=== PATIENT | male | born 1945 | race Caucasian/White ===

== ENCOUNTER 2016-03-11 13:51 | Inpatient (IN) | payer MEDICARE ==
[~2016-03-11] VITALS: Ht 180.3 cm; Wt 92.1 kg
[~2016-03-11 13:51] MED LIST: BAYER CHEWABLE81 MG PO; BUMEX 1 MG TAB1 MG PO; BYSTOLIC5 MG PO; HYDROCODON-ACE1 EAC7 PO; JANUVIA50 MG PO; LISINOPRIL2.5 MG PO; NEURONTIN 300300 MG PO; NORVASC5 MG PO; NOVOLIN N100 U/ML SQ; PRAVACHOL20 MG PO; RITALIN5 MG PO; SYNTHROID75 MCG PO; WELLBUTRIN75 MG PO
--- NOTE | 2016-03-11 14:15 | NUR ---
ARRIVE TO FLOOR VIA WHEELCHAIR FROM DOCTOR'S OFFICE. ALERT AND ORIENTED X4. SISTER AT BEDSIDE. RT FOOT AND LOWER LEG RED AND SWOLLEN. DENIES PAIN. DENIES SOB. NO FEELING IN LOWER EXTREMITIES BILATERALLY DUE TO NEUROPATHY. REFUSE SCDs. CONTINUE ADMISSION PROCESS. BED LOCKED AND LOW. CALL LIGHT IN REACH. TWO SIDERAILS UP.
[2016-03-11] MEDS ORDERED: LANTUS INSULIN10 ML SC ×2 (14:46→14:47)
[2016-03-11 15:46] VITALS: BP 164/62
[2016-03-11 16:13] LABS: BASOPHILS 0.6 % (0.0-2.0); EOSINOPHILS 6.6 % (0-7); HEMATOCRIT 29.2 % (42.0-54.0); IMMATURE GRANULOCYTES 0.3 % (0-5); LYMPHOCYTES 25.1 % (15-50); MCH 30.4 pg (26.0-34.0); MCHC 30.8 g/dL (31.0-37.0); MCV 98.6 fL (80.0-100.0); MONOCYTES 12.5 % (2-11); NEUTROPHILS 54.9 % (40-80); RBC 2.96 10x6/uL (4.20-6.10); RDW 13.1 % (11.5-14.5); WBC 6.7 10x3/uL (4.8-10.8)
[2016-03-11 16:14] LABS: PLATELET COUNT 200 10x3/uL (130-400)
[2016-03-11 16:31] LABS: ALBUMIN 3.3 g/dL (3.4-5.0); ANION GAP 16.7 mmol/L (8-16); BILIRUBIN - TOTAL 0.35 mg/dL (0.2-1.3); CALCIUM 8.8 mg/dL (8.5-10.1); CARBON DIOXIDE 23.8 mmol/L (21.0-32.0); CREATININE - SERUM 3.7 mg/dL (0.6-1.3); POTASSIUM - SERUM 4.5 mmol/L (3.5-5.1); PROTEIN - SERUM 7.9 g/dL (6.4-8.2)
[2016-03-11 17:16] VITALS: BP 164/62; BMI 28.3
--- NOTE | 2016-03-11 18:00 | NUR ---
ALERT AND ORIENTED X4. SITTING UP IN BED. SUPPLIES FOR UA AND STOOL COLLECTION IN ROOM. CONTACT ISOLATION PER UNTIL CULTURES COME BACK. NO CHANGE. CONTINUE PLAN OF CARE AND SAFETY PRECAUTIONS.
[2016-03-11 20:00] VITALS: BP 142/55
--- NOTE | 2016-03-11 20:10 | NUR ---
PATIENT SLEEPING IN SEMI-FOWLERS POSITION. NO VISUAL SIGNS OF DISTRESS.
[2016-03-12] VITALS (7 sets, daily range): BP systolic 113–165; BP diastolic 48–65; Ht 180.3 cm; Wt 92.1 kg
[2016-03-12 05:39] LABS: BASOPHILS 0.5 % (0.0-2.0); EOSINOPHILS 7.6 % (0-7); HEMATOCRIT 28.1 % (42.0-54.0); HEMOGLOBIN 8.7 g/dL (13.5-17.5); IMMATURE GRANULOCYTES 0.3 % (0-5); LYMPHOCYTES 31.8 % (15-50); MCH 30.5 pg (26.0-34.0); MCV 98.6 fL (80.0-100.0); MEAN PLATELET VOLUME 9.7 fL (7.4-10.4); MONOCYTES 13.1 % (2-11); NEUTROPHILS 46.7 % (40-80); PLATELET COUNT 195 10x3/uL (130-400); RBC 2.85 10x6/uL (4.20-6.10); RDW 13.2 % (11.5-14.5); WBC 6.5 10x3/uL (4.8-10.8)
[2016-03-12 05:48] LABS: HEMOGLOBIN A1C 8.6 % (4.8-6.0)
[2016-03-12 05:56] LABS: ALBUMIN 3.1 g/dL (3.4-5.0); ANION GAP 13.1 mmol/L (8-16); BILIRUBIN - TOTAL 0.3 mg/dL (0.2-1.3); CALCIUM 8.2 mg/dL (8.5-10.1); CARBON DIOXIDE 26.1 mmol/L (21.0-32.0); CREATININE - SERUM 3.5 mg/dL (0.6-1.3); PHOSPHOROUS 4.2 mg/dL (2.5-4.9); POTASSIUM - SERUM 4.2 mmol/L (3.5-5.1); PROTEIN - SERUM 7.7 g/dL (6.4-8.2)
--- NOTE | 2016-03-12 07:00 | NUR ---
REPORT RECIEVED ASSUMED CARE. PATIENT IN BED WITH IV INTACT. NO COMPLAINTS. CALL LIGHT WITHIN REACH.
[2016-03-12 09:41] LABS: CREATININE - URINE 31.4 mg/dL (30-125); PROTEIN - URINE 84.6 mg/dL (0.0-11.9)
[2016-03-12 09:45] LABS: APPEARANCE CLEAR (CLEAR); BACTERIA MODERATE /hpf (NONE SEEN); BILIRUBIN NEGATIVE (NEGATIVE); COLOR STRAW (YELLOW); EPITHELIAL CELLS 0-5 /hpf (0-5); GLUCOSE NEGATIVE (NEGATIVE); KETONE NEGATIVE (NEGATIVE); LEUKOCYTE ESTERASE 1+ (NEGATIVE); MUCUS <1+ /lpf (NONE SEEN); NITRITE NEGATIVE (NEGATIVE); PROTEIN 1+ mg/dL (NEGATIVE); RED CELLS - URINE 0-5 /hpf (0-5); UROBILINOGEN NORMAL (NORMAL); WHITE CELLS - URINE 25-50 /hpf (0-5)
--- NOTE | 2016-03-12 18:55 | NUR ---
PATIENT IN BED WITH FAMILY AT BEDSIDE. CALL LIGHT WITHIN REACH.
[2016-03-13 04:00] VITALS: BP 147/50
[2016-03-13 05:53] LABS: BASOPHILS 0.6 % (0.0-2.0); EOSINOPHILS 7.9 % (0-7); IMMATURE GRANULOCYTES 0.3 % (0-5); LYMPHOCYTES 22.6 % (15-50); MCH 29.9 pg (26.0-34.0); MCV 99.7 fL (80.0-100.0); MEAN PLATELET VOLUME 9.9 fL (7.4-10.4); MONOCYTES 10.2 % (2-11); NEUTROPHILS 58.4 % (40-80); PLATELET COUNT 192 10x3/uL (130-400); RBC 3.01 10x6/uL (4.20-6.10); RDW 13.3 % (11.5-14.5); WBC 7.3 10x3/uL (4.8-10.8)
[2016-03-13 06:15] LABS: ALBUMIN 2.9 g/dL (3.4-5.0); ANION GAP 14.6 mmol/L (8-16); BILIRUBIN - TOTAL 0.26 mg/dL (0.2-1.3); CALCIUM 8.5 mg/dL (8.5-10.1); CARBON DIOXIDE 25.6 mmol/L (21.0-32.0); CREATININE - SERUM 3.3 mg/dL (0.6-1.3); POTASSIUM - SERUM 4.2 mmol/L (3.5-5.1); PROTEIN - SERUM 7.4 g/dL (6.4-8.2)
--- NOTE | 2016-03-13 07:00 | NUR ---
REPORT RECIEVED ASSUMED CARE. PATIENT IN BED WITH IV ITNACT. NO COMPLAINTS. CALL LIGHT WITHIN REACH.
[2016-03-13 09:04] VITALS: BP 140/56
--- NOTE | 2016-03-13 10:04 | NUR ---
PATIENT CALLED NURSES STATION FILTER PRESS OPERATOR LIGHT TO SAY THAT HE HAD FALLEN. WENT TO PATIENTS ROOM AND PATIENT SITTING IN FLOOR. STATED HE SLIPPED AND FELL ON HIS BUTTOCKS. FLOOR WET FROM URINATION. PATIENT STATED HE DID NOT HURT HIMSELF. VS STABLE. BP AND PLUSE ELEVATED. EXPLAINED TO PATIENT THAT HE WOULD NOW BE PLACED ON FALL PRECAUTIONS AND IS NOT TO GET UP WITHOUT ASSISTANCE. PLACED ON ZACARIAS MAT. YELLOW ARM BAND IN PLACE. NOTIFIED PHYSICIAN. NEW ORDERS RECIEVED AND CARRIED OUT. NOTIFIED PATIENTS SISTER. PATIENT SISTER UPSET AND STATED THAT SOMEONE SHOULD HAVE BEEN IN THE ROOM WITH HIM. EXPLAINED THAT PATIENT HAS BEEN UP MOVING FINE WITH NO ASSISTANCE AND NOT ON FALL PRECAUTIONS, UNTIL NOW AND THAT IT LOOKED LIKE HE HAD SLIPPED BC THE FLOOR WAS WET FROM URINE WHERE HE HAD AN ACCIDENT AND THAT HE HAD NOT CALLED FOR HELP TO THE BR. SISTER STATED " WELL SOMEONE SHOULD HAVE BEEN IN THERE." NOTIFED HS OF FALL. PATIENT BACK TO BED WITH CALL LIGHT WITHIN REACH.
--- NOTE | 2016-03-13 12:37 | CN ---
PATIENT NAME:REMIGIO SARAH MEDICAL RECORD: [id number] : 45 LOCATION:[id number] ADMIT DATE: 03/11/16 ACCOUNT: [id number] CONSULTING PHYSICIAN: STEVE SOLIS MD REFERRING PHYSICIAN: REFUGIO BUSTAMANTE MD DATE OF CONSULTATION: 03/11/2016 RENAL CONSULTATION HISTORY OF PRESENT ILLNESS: A 70-year-old gentleman who presents with right third toe infection with cellulitis and is now being followed by ID. He is followed by Dr. Tian with a baseline creatinine of 3.5-4.0, CKD stage IV. REVIEW OF SYSTEMS: Negative for fevers or chills, fatigue or weight change. No blurry vision, eye pain or photophobia. No hearing problems, no congestion, rhinorrhea, epistaxis, hoarseness or dental problems. No chest pain, palpitations, tachycardia, orthopnea or edema. Negative for cough, dyspnea and hemoptysis. Negative for abdominal pain, heartburn, constipation or diarrhea. Negative for arthralgias, back pain or myalgias. Negative for dizziness, headaches, parathesias or weakness. He is just having numbness and paresthesias to his right foot with redness. PAST MEDICAL HISTORY: 1. Diabetes type 2. 2. Hyperlipidemia. 3. Hypertension. 4. Congestive heart failure. 5. Chronic kidney disease stage IV, followed by Dr. Tian. 6. Hypothyroidism. 7. Attention deficit disorder. 8. Peripheral neuropathy/diabetic neuropathy. 9. Depression. 10. Fatigue. 11. Anemia of CKD. Dr. Tian is his core composer feeder, Dr. Haider is his alley cleaner and Dr. Marrero is his gym supervisor. Carotid Doppler done on 11/27/2013 was normal. Influenza vaccine in February 2011 and pneumococcal vaccine in December of 2011. PAST SURGICAL HISTORY: Stent placement in November [address] Marrero. He is having evaluation of his right foot by Dr. Love. SOCIAL HISTORY: Single, no children. No tobacco, alcohol or illicit drugs. ALLERGIES: NKDA. HOME MEDICATIONS: Synthroid 75 mcg a day, Bystolic 10 a day, Bumex 1 mg b.i.d., lisinopril 2.5 mg a day, aspirin 81 a day, Lantus 20 units in the a.m. and 10 in the evening, Neurontin 300 mg at night and pravastatin 20 mg. PHYSICAL EXAMINATION: VITAL SIGNS: Blood pressure is 164/62, 68 pulse, 20 respiratory rate and 97.9 temperature. CONSULT REPORT [id number] REMIGIO SARAH GENERAL: He is alert and oriented times 3. HEENT: Normocephalic and atraumatic. Clear nares. Clear throat. NECK: No JVD or thyromegaly. No carotid bruit. CHEST: Regular rhythm. S1, S2. LUNGS: Clear to auscultation. ABDOMEN: Nontender in all 4 quadrants. No appreciable hepatosplenomegaly. EXTREMITIES: A +2 femoral pulses even bilaterally. Right foot is noted with cellulitis and erythema as well as a change to his digit. He has decreased sensation of his feet bilaterally. LABORATORY DATA: H&H is 11/25 with a white count of 6700 and platelet count 200,000. Chemistry: Sodium 146, potassium 4.5, chloride 110, carbon dioxide 23.8, BUN 57, creatinine 3.7, glucose 143, AST 22, ALT 14 and albumin 3.3. ASSESSMENT: 1. Cellulitis followed by infectious disease. 2. Chronic kidney disease stage IV, creatinine is currently at or near his baseline. 3. Anemia of chronic kidney disease. We will likely begin erythropoietin during his stay. 4. Mild decrease in his albumin, but has a good nutritional status and likely has a low albumin due to protein loss from his renal insufficiency. 5. Diabetic neuropathy. 6. Hypernatremia. We will follow his sodium. He is able to take in liquids and is not having nausea and vomiting at this time. 7. Hypothyroidism. 8. Hyperlipidemia. 9. Attention deficit disorder. 10. Hypertension. He is currently on an CARLO. We will monitor his blood pressure as this is higher than his usual elevation. He is not having significant pain at this time, but we will need to follow his blood pressure. 11. Suspect osteomyelitis. Dr. Love has been consulted infectious disease is taking care of his antibiotics. 12. Erythropoietin. 13. Phosphorus and intact PTH. 14. We will follow along with you. TRANSINT:[id number] Voice Confirmation ID: [id number] DOCUMENT ID: [id number] STEVE SOLIS MD at 1237 CC: [id number] DICTATION DATE: 03/11/16 1351 RETAIL FIELD REPRESENTATIVE: 03/11/16 192 ADM IN [facility] [address] [id number]
[2016-03-13 13:01] VITALS: BP 187/70
--- NOTE | 2016-03-13 15:15 | NUR ---
NEW DRESSING PLACED OVER RIGHT MIDDLE TOE. TOP OF TOE SKINNED, NO BLEEDING, NO PAIN TO PATIENT. BACTROBAN PLACED ON TOE AND DRESSING APPLIED. FAMILY AT BEDSIDE. CALL LIGHT WITHIN REACH.
--- NOTE | 2016-03-13 17:00 | NUR ---
PATIENT IN BED WITH IV INTACT. NO COMPLAINTS. CALL LIGHT WITHIN REACH.
[2016-03-13 18:10] VITALS: BP 167/70
--- NOTE | 2016-03-13 18:50 | NUR ---
PATIENT IN BED WITH IV INTACT. NO COMPLAINTS. CALL LIGHT WITHIN REACH.
--- NOTE | 2016-03-13 19:20 | NUR ---
RECIEVED SHIFT REPORT. PT IS LYING IN BED. ALERT AND ORIENTED AND ABLE TO VERBALIZE NEEDS. IV IS PATENT AND SALINE LOC AFTER ANTIBIOTICS. ISOLATION PRECAUTIONS IN PLACE. PT REFUSES TO HAVE SCD'S ON AT THIS TIME. PT IS AMBULATORY WITH ASSISTANCE. FALL PRECAUTIONS IN PLACE. PT STATES PAIN IS 9/10. NO NEEDS ARE VERBALIZED AT THIS TIME. WILL CONTINUE TO MONITOR. SIDE RAILS ARE UP X 2. BED IS IN LOWEST POSITION. CALL LIGHT IS WITHIN REACH.
--- NOTE | 2016-03-13 20:31 | NUR ---
SHIFT ASSESSMENT COMPLETED. NIGHT MEDS GIVEN WITH NO PROBLEMS. SCHEDULED LANTUS GIVEN FOR WPHV=860. NO NEEDS ARE VOICED. WILL MONITOR. SIDE RAILS X 2. BED LOW. CALL LIGHT IN REACH.
[2016-03-13 21:00] VITALS: BP 149/40
[2016-03-14 02:00] VITALS: BP 142/55
[2016-03-14 05:09] LABS: BASOPHILS 0.5 % (0.0-2.0); HEMOGLOBIN 8.4 g/dL (13.5-17.5); IMMATURE GRANULOCYTES 0.3 % (0-5); MCHC 31.1 g/dL (31.0-37.0); MEAN PLATELET VOLUME 9.8 fL (7.4-10.4); MONOCYTES 10.1 % (2-11); NEUTROPHILS 52.1 % (40-80); PLATELET COUNT 196 10x3/uL (130-400); RDW 13.1 % (11.5-14.5); WBC 6.6 10x3/uL (4.8-10.8)
[2016-03-14 05:11] LABS: MCV 96.4 fL (80.0-100.0)
[2016-03-14 05:47] LABS: ALBUMIN 2.7 g/dL (3.4-5.0); ANION GAP 13.1 mmol/L (8-16); BILIRUBIN - TOTAL 0.2 mg/dL (0.2-1.3); CARBON DIOXIDE 27.6 mmol/L (21.0-32.0); CREATININE - SERUM 3.4 mg/dL (0.6-1.3); POTASSIUM - SERUM 3.7 mmol/L (3.5-5.1); PROTEIN - SERUM 6.7 g/dL (6.4-8.2)
[2016-03-14 08:30] VITALS: BP 138/53
[2016-03-14 12:14] VITALS: BP 143/65
--- NOTE | 2016-03-14 12:18 | NUR ---
NUTRITION MONITORING & EVAL CHART REVIEWED. PT VISIT. PT REMAINS IN ISOLATION, REPORTS GOOD PO INTAKE. WILL CONTINUE TO PROVIDE CURRENT DIET, MONITOR PT PROGRESS. RD FOLLOWING
--- NOTE | 2016-03-14 13:23 | NUR ---
Patient Name: REMIGIO SARAH Admission Status: Urgent Accout number: [id number] Admission Date: 03-11-2016 : 1945 Admission Diagnosis: Attending: AMBROCIO Current LOS: 3 Anticipated DC Date: 03-17-2016 Planned Disposition: Home Primary Insurance: MEDICARE A & B Discharge Planning Comments: CM MET WITH PATIENT REGARDING D/C NEEDS AND PLANS. PATIENT STATED HE LIVES ALONE AND HIS SISTER CHECKS ON HIM AND WILL BE THE ONE TO DRIVE HIM HOME AT DISCHARGE. PATIENT STATED HE IS INDEPENDENT AND HAS A WALKER, CANE, AND SHOWER CHAIR AT HOME. PATIENT STATED THERE ARE 4 STEPS W/RAILS TO ENTER HIS HOME AND NO STAIRS INSIDE. PATIENTS SISTER DOES HELP WITH HIS MEDICATION. PATIENTS PCP IS DR. WEBB AND PHARMACY IS [facility] AT [facility]. CM WILL CONTINUE TO FOLLOW PATIENT WITH D/C NEEDS AND PLANS. PCP DR. WEBB [facility]- [phone] TASNEEM ADAMS (SISTER) [phone] Basketball Referee: Aaliyah Ryan Is the patient Alert and Oriented? Yes 0 * How many steps to enter\exit or inside your home? 4 W/RAILS 0 * PCP DR. WEBB 0 * Pharmacy [facility] 0 * Preadmission Environment Home Alone 0 * ADLs Independent 0 * Equipment Cane Shower Chair Walker 0 * List name and contact numbers for known caregivers / representatives who currently or will assist patient after discharge: TASNEEM ADAMS (SISTER) [phone] 0 * Community resources currently utilized None 0 * Additional services required to return to the preadmission environment? Yes 0 * Can the patient safely return to the preadmission environment? Yes 0 * Has this patient been hospitalized within the prior 30 days at any hospital? No 0 Grand Total: 0
[2016-03-14 16:54] VITALS: BP 153/55
--- NOTE | 2016-03-14 19:15 | NUR ---
RECIEVED SHIFT REPORT. PT IS LYING IN BED. ALERT AND ORIENTED AND ABLE TO VERBALIZE NEEDS. IV IS PATENT AND SALINE LOC AT THIS TIME. PT IS AMBULATORY WITH ASSISTANCE. PT REFUSES SCD'S AT THIS TIME. PT DENIES ANY PAIN AT THIS TIME. ISOLATION PRECAUTIONS IN PLACE. NO NEEDS ARE VERBALIZED AT THIS TIME. WILL CONTINUE TO MONITOR. SIDE RAILS ARE UP X 2. BED IS IN LOWEST POSITION. ZACARIAS MAT IS ON FOR SAFETY. CALL LIGHT IS WITHIN REACH.
[2016-03-14 21:00] VITALS: BP 126/35
--- NOTE | 2016-03-14 22:03 | NUR ---
SHIFT ASSESSMENT COMPLETED. NIGHT MEDS GIVEN WITH NO PROBLEMS. PT RECIEVED 2 UNITS INSULIN PER SLIDING SCALE FOR AOOI=644. SCHEDULED LANTUS ADMINISTERED PER ORDER. NO NEEDS ARE VOICED. WILL MONITOR. SIDE RAILS X 2. BED LOW. ZACARIAS ON. CALL LIGHT IN REACH.
[2016-03-15 00:21] VITALS: BP 139/64
[2016-03-15 05:00] VITALS: BP 144/61
[2016-03-15 05:25] LABS: BASOPHILS 0.1 % (0.0-2.0); EOSINOPHILS 7.3 % (0-7); HEMATOCRIT 28.1 % (42.0-54.0); HEMOGLOBIN 8.7 g/dL (13.5-17.5); IMMATURE GRANULOCYTES 0.1 % (0-5); LYMPHOCYTES 26.4 % (15-50); MCV 96.9 fL (80.0-100.0); MEAN PLATELET VOLUME 9.8 fL (7.4-10.4); MONOCYTES 9.4 % (2-11); NEUTROPHILS 56.7 % (40-80); PLATELET COUNT 195 10x3/uL (130-400); RDW 13.2 % (11.5-14.5); WBC 7.4 10x3/uL (4.8-10.8)
[2016-03-15 05:56] LABS: ALBUMIN 2.7 g/dL (3.4-5.0); ANION GAP 15.5 mmol/L (8-16); BILIRUBIN - TOTAL 0.2 mg/dL (0.2-1.3); CALCIUM 8.8 mg/dL (8.5-10.1); CARBON DIOXIDE 25.2 mmol/L (21.0-32.0); CREATININE - SERUM 3.4 mg/dL (0.6-1.3); POTASSIUM - SERUM 3.7 mmol/L (3.5-5.1); PROTEIN - SERUM 7.3 g/dL (6.4-8.2)
[2016-03-15 07:53] VITALS: BP 133/55
--- NOTE | 2016-03-15 08:25 | NUR ---
AWAKE AND ALERT. ORIENTED X3. NO C/O AT THIS TIME. LUNGS ARE CLEAR BILATERALLY, NO COUGH NOTED. SKIN IS INTACT WITHOUT REDNESS EXCEPT WOUND TO RIGHT SECOND TOE, NO DRAINAGE NOTED. PEDAL PULSES PALPABLE. SL TO RIGHT WRIST PATENT WITHOUT REDNESS AT INSERTION SITE. DENIES NEEDS. BREAKFAST SERVED IN ROOM.
--- NOTE | 2016-03-15 10:50 | NUR ---
RESTING QUIETLY IN BED. NO C/O AT THIS TIME.
--- NOTE | 2016-03-15 12:13 | NUR ---
WOUND CARE CONSULT: NOTED #2 TOE ON RIGHT FOOT HAS SCABBED AREA ON TOP. IN BETWEEN #2 AND #3 TOES THE SKIN IS MACERATED/WHITE. POSSIBLY AN OLD BLISTER ON #2? THE SKIN OF #3 IS INTACT. THERE IS REDNESS NOTED ON DORSAL RIGHT FOOT. IT IS COOL TO TOUCH. PT STATES IT DOES NOT HURT D/T NEUROPATHY. THERE IS NO ODOR. DUE TO MACERATION BETWEEN #2 AND #3 TOES, RECOMMEND KEEPING OPEN TO AIR AT THIS TIME. WOUND CARE WILL CONTINUE MONITORING.
[2016-03-15 12:18] VITALS: BP 153/55
[2016-03-15 16:18] VITALS: BP 141/54
--- NOTE | 2016-03-15 17:00 | NUR ---
FSBS 200. GIVEN 2 UNITS HUMALOG PER SS SUBQ. SUPPER SERVED IN ROOM. IV TO RIGHT WRIST LEAKING. RESITED TO RIGHT FOREARM AFTER 5 ATTEMPTS WITH 22G. NO CHANGES NOTED. DENIES NEEDS.
--- NOTE | 2016-03-15 19:15 | NUR ---
RECIEVED SHIFT REPORT. PT IS LYING IN BED. ALERT AND ORIENTED AND ABLE TO VERBALIZE NEEDS. IV IS PATENT AND ANTIBIOTIC RUNNING AT THIS TIME. PT IS AMBULATORY WITH ASSISTANCE. PT REFUSES SCD'S. PT DENIES ANY PAIN AT THIS TIME. NO NEEDS ARE VERBALIZED. WILL CONTINUE TO MONITOR. SIDE RAILS ARE UP X 2. BED IS IN LOWEST POSITION. ZACARIAS MAT IS ON FOR SAFETY. CALL LIGHT IS WITHIN REACH.
[2016-03-15 22:00] VITALS: BP 135/75
--- NOTE | 2016-03-15 22:10 | NUR ---
SHIFT ASSESSMENT COMPLETED. NIGHT MEDS GIVEN WITH NO PROBLEMS. PT RECIEVED 2 UNITS INSULIN PER SLIDING SCALE FOR CJKV=903. SCHEDULED LANTUS GIVEN WITH PER ORDER. NO NEEDS ARE VOICED. WILL MONITOR. SIDE RAILS X 2. BED LOW. ZACARIAS ON. CALL LIGHT IN REACH.
[2016-03-16 03:10] LABS: OVA + PARASITE EXAM Final report (())
[2016-03-16 05:33] LABS: BASOPHILS 0.6 % (0.0-2.0); EOSINOPHILS 7.8 % (0-7); HEMATOCRIT 29.4 % (42.0-54.0); IMMATURE GRANULOCYTES 0.1 % (0-5); LYMPHOCYTES 27.3 % (15-50); MCH 29.8 pg (26.0-34.0); MCHC 30.6 g/dL (31.0-37.0); MCV 97.4 fL (80.0-100.0); MEAN PLATELET VOLUME 10.1 fL (7.4-10.4); MONOCYTES 12.3 % (2-11); NEUTROPHILS 51.9 % (40-80); PLATELET COUNT 226 10x3/uL (130-400); RBC 3.02 10x6/uL (4.20-6.10); RDW 13.2 % (11.5-14.5); WBC 6.9 10x3/uL (4.8-10.8)
[2016-03-16 06:04] LABS: ALBUMIN 2.8 g/dL (3.4-5.0); ANION GAP 14.8 mmol/L (8-16); BILIRUBIN - TOTAL 0.2 mg/dL (0.2-1.3); CALCIUM 8.2 mg/dL (8.5-10.1); CARBON DIOXIDE 24.9 mmol/L (21.0-32.0); CREATININE - SERUM 3.3 mg/dL (0.6-1.3); POTASSIUM - SERUM 3.7 mmol/L (3.5-5.1); PROTEIN - SERUM 7.5 g/dL (6.4-8.2)
--- NOTE | 2016-03-16 07:35 | NUR ---
PATIENT RECEIVED IN LOW SALAZAR POSITION RESTING WITH EYES CLOSED RESPIRATIONS EVEN AND UNLABORED. SIDE RAILS UP X2. BED IN LOW POSITION. CALL LIGHT IN REACH. DENIES NEEDS.
[2016-03-16 08:13] VITALS: BP 136/35
[2016-03-16 08:32] VITALS: BP 141/61
--- NOTE | 2016-03-16 08:35 | NUR ---
ALERT IN BED EATING BREAKFAST. TOLERATING WELL. SCHEDULED MEDICATION ADMINISTERED. DENIES NEEDS. SIDE RAILS UP X2. BED IN LOW POSITION. CALL LIGHT IN REACH.
[2016-03-16 11:56] VITALS: BP 125/41
[2016-03-16] MEDS ORDERED: QUESTRAN PACK4 G/PKT PO (11:57)
[2016-03-16] MEDS ORDERED: FLORAJEN3 CAPS460 MG PO (11:58)
[2016-03-16] MEDS ORDERED: BACTROBAN CREAM15 GM TOPICAL (11:58)
[2016-03-16] MEDS ORDERED: KEFLEX500 MG PO (11:59)
[2016-03-16] MEDS ORDERED: VANCOMYCIN250 MG/51 PO (12:02)
--- NOTE | 2016-03-16 12:30 | NUR ---
ALERT IN BED EATING LUNCH. TOLERATING WELL. SIDE RAILS UP X2. BED IN LOW POSITION. CALL LIGHT IN REACH.
--- NOTE | 2016-03-16 14:40 | NUR ---
CM REASSESSMENT NOTE: CM MET WITH PATIENT AND HE STATED AT FIRST HE DID NOT WANT HOME HEALTH AND JUST WANTED TO GO HOME. CM CALLED PATIENTS SISTER AND SHE STATED HE IS STUBBORN. THAT SHE WOULD COME AND DRIVE HIM HOME WHEN DISCHARGED. CM THEN WENT BACK IN AND TALKED TO HIM ABOUT HOME HEALTH AND HOW IT WOULD BENEFIT HIM AND HE CHOSE [facility] AND SIGNED THE GIAN[facility] FORM WITH THEM. REFERRAL WAS FAXED. CM WILL CONTINUE TO FOLLOW PATIENT WITH D/C NEEDS AND PLANS.
--- NOTE | 2016-03-16 15:00 | NUR ---
IV D/C WITH CATH TIP INTACT. SITE COVERED WITH GAUZE AND BANDAID.
--- NOTE | 2016-03-16 15:25 | NUR ---
D/C TEACHING PROVIDED TO PATIENT AND SISTER. STATES UNDRSTANDING.
--- NOTE | 2016-03-16 15:32 | NUR ---
PATIENT D/C HOME WITH SISTER. TRANSFERRED DOWNSTAIRS VIA WHEELCHAIR
== END 2016-03-16 15:33 | disposition home or self-care (01) | DRG 638 ==
LOC: D.MS 13:51
PROVIDERS: Internal Medicine Nephrology; Student in an Organized Health Care Education/Training Program; ADMIT Family Medicine
DX: E11.621 Type 2 diabetes mellitus with foot ulcer (principal); L03.115 Cellulitis of right lower limb; L02.611 Cutaneous abscess of right foot; N39.0 Urinary tract infection, site not specified; I13.0 Hypertensive heart and chronic kidney disease with heart failure and stage 1 through stage 4 chronic kidney disease, or unspecified chronic kidney disease; K52.1 Toxic gastroenteritis and colitis; A04.7 Enterocolitis due to Clostridium difficile; N18.4 Chronic kidney disease, stage 4 (severe); L03.031 Cellulitis of right toe; E11.42 Type 2 diabetes mellitus with diabetic polyneuropathy; Z79.4 Long term (current) use of insulin; N28.9 Disorder of kidney and ureter, unspecified; L97.519 Non-pressure chronic ulcer of other part of right foot with unspecified severity; I50.9 Heart failure, unspecified; T36.95XA Adverse effect of unspecified systemic antibiotic, initial encounter; E11.628 Type 2 diabetes mellitus with other skin complications

== ENCOUNTER 2016-03-25 13:46 | Inpatient (IN) | payer MEDICARE ==
[~2016-03-25] VITALS: Ht 180.3 cm; Wt 88.9 kg
[~2016-03-25 13:46] MED LIST changes: +BACTROBAN CREAM15 GM TOPICAL; +FLORAJEN3 CAPS460 MG PO; +KEFLEX500 MG PO; +LANTUS INSULIN10 ML SC; +QUESTRAN PACK4 G/PKT PO; +VANCOMYCIN250 MG/51 PO
[2016-03-25 15:26] LABS: BASOPHILS 0.4 % (0.0-2.0); EOSINOPHILS 3.3 % (0-7); HEMATOCRIT 30.1 % (42.0-54.0); HEMOGLOBIN 9.2 g/dL (13.5-17.5); IMMATURE GRANULOCYTES 0.3 % (0-5); LYMPHOCYTES 29.4 % (15-50); MCH 30.4 pg (26.0-34.0); MCHC 30.6 g/dL (31.0-37.0); MCV 99.3 fL (80.0-100.0); MEAN PLATELET VOLUME 10.2 fL (7.4-10.4); MONOCYTES 13.3 % (2-11); NEUTROPHILS 53.3 % (40-80); RBC 3.03 10x6/uL (4.20-6.10); WBC 6.9 10x3/uL (4.8-10.8)
[2016-03-25 15:27] LABS: PLATELET COUNT 154 10x3/uL (130-400)
[2016-03-25 15:43] LABS: ALBUMIN 3.1 g/dL (3.4-5.0); ANION GAP 16.9 mmol/L (8-16); BILIRUBIN - TOTAL 0.31 mg/dL (0.2-1.3); CALCIUM 8.2 mg/dL (8.5-10.1); CARBON DIOXIDE 20.2 mmol/L (21.0-32.0); CREATININE - SERUM 4.3 mg/dL (0.6-1.3); POTASSIUM - SERUM 5.1 mmol/L (3.5-5.1); PROTEIN - SERUM 7.1 g/dL (6.4-8.2)
--- NOTE | 2016-03-25 18:45 | NUR ---
PATIENT IN BED WITH IV INTACT. NO COMPLAINTS. EYES CLOSED RESTING QUIETLY. CALL LIGHT WITHIN REACH.
--- NOTE | 2016-03-25 19:30 | NUR ---
PT IS RESTING IN BED WITH EYES OPEN. ALERT AND ORIENTED X 4. PT ASSISTED TO THE BATHROOM WITH SBA. VOIDED WITHOUT DIFFICULTY. NO DIARRHEA NOTED. IV INFUSING TO RIGHT WRIST WITHOUT DIFFICULTY. NO REDNESS OR EDEMA NOTED AT THE INSERTION SITE. SR'S ARE UP X 3 IN BED. CALL LIGHT AND BEDSIDE TABLE ARE WITHIN EASY REACH.
[2016-03-25 20:00] VITALS: BP 162/64
[2016-03-25 20:27] VITALS: BP 135/53; BMI 27.4
--- NOTE | 2016-03-25 21:17 | NUR ---
PT ASISSTED TO THE BATHROOM WITH SBA. VERY SMALL LOOSE STOOL NOTED. NO FURTHER NEEDS VOICED.
[2016-03-26] VITALS: BP 146/57
--- NOTE | 2016-03-26 00:02 | NUR ---
PT ASSISTED UP TO THE BATHROOM TO VOID. NO COMPLAINT VOICED.
--- NOTE | 2016-03-26 03:45 | NUR ---
PT RESTING IN BED WATCHING TV. NO NEEDS VOICED.
[2016-03-26 04:00] VITALS: BP 138/49
--- NOTE | 2016-03-26 05:48 | NUR ---
EYES CLOSED RESPIRATIONS WITH EASE AND UNLABORED.
[2016-03-26 06:43] LABS: BASOPHILS 0.2 % (0.0-2.0); EOSINOPHILS 4.9 % (0-7); HEMATOCRIT 27.8 % (42.0-54.0); HEMOGLOBIN 8.4 g/dL (13.5-17.5); IMMATURE GRANULOCYTES 0.2 % (0-5); MCHC 30.2 g/dL (31.0-37.0); MCV 99.3 fL (80.0-100.0); MEAN PLATELET VOLUME 10.4 fL (7.4-10.4); MONOCYTES 12.6 % (2-11); NEUTROPHILS 55.1 % (40-80); PLATELET COUNT 138 10x3/uL (130-400); WBC 6.3 10x3/uL (4.8-10.8)
[2016-03-26 07:09] LABS: ALBUMIN 2.6 g/dL (3.4-5.0); ANION GAP 15.2 mmol/L (8-16); BILIRUBIN - TOTAL 0.3 mg/dL (0.2-1.3); CALCIUM 7.5 mg/dL (8.5-10.1); CARBON DIOXIDE 18.4 mmol/L (21.0-32.0); CREATININE - SERUM 3.5 mg/dL (0.6-1.3); POTASSIUM - SERUM 4.6 mmol/L (3.5-5.1); PROTEIN - SERUM 6.2 g/dL (6.4-8.2)
--- NOTE | 2016-03-26 07:15 | NUR ---
REPORT RECEIVED FROM DIRECTOR OF PURCHASING NURSE. CALL LIGHT IN REACH.
--- NOTE | 2016-03-26 08:24 | NUR ---
ASSESSMENT COMPLETED. SCDs EXPLAINED AND OFFERED TO PATIENT BUT HE REFUSED. EXPLAINED TO PATIENT THAT WE NEED A STOOL SAMPLE FOR TESTING. VERBALIZED UNDERSTANDING. [place] HAT PLACED IN BR. WILL PLACE TELEMETRY ON PATIENT. BED ALARM ON. EMERGENCY CONTACT AND PASSWORD OBTAINED FROM PATIENT. CALL LIGHT IN REACH. WILL CONTINUE WITH PLAN OF CARE.
[2016-03-26 08:33] VITALS: BP 146/61
--- NOTE | 2016-03-26 08:40 | NUR ---
AM MEDS ADMINISTERED. TELEMETRY ORDER WAS COMPLETED.
--- NOTE | 2016-03-26 10:40 | NUR ---
NO NEEDS VOICED AT THIS TIME. CALL LIGHT IN REACH.
--- NOTE | 2016-03-26 12:35 | NUR ---
ZOFRAN 4 MG SIVP PER C/O NAUSEA. FSBS 203. HUMALOG 4 UNITS SUBQ TO RIGHT ARM. VANC PO. STOOL SAMPLE COLLECTED AND SENT TO LAB FOR TESTING.
[2016-03-26 13:05] VITALS: BP 155/58
--- NOTE | 2016-03-26 13:51 | NUR ---
ASSISTED TO BR AND BACK TO BED PER BITUMEN PLANT OPERATOR. TOLERATED WELL.
--- NOTE | 2016-03-26 14:30 | NUR ---
NO NEEDS VOICED AT THIS TIME. CALL LIGHT IN REACH.
[2016-03-26 15:47] VITALS: BP 152/52
--- NOTE | 2016-03-26 16:19 | NUR ---
AMB TO B'R WITH HELP MELY WELL AT PRESENT DENIES ANY NEEDS AT THIS TIME.
[2016-03-26 16:32] VITALS: Ht 180.3 cm; Wt 88.9 kg
--- NOTE | 2016-03-26 17:25 | NUR ---
FSBS 112 SO NO COVERAGE REQUIRED. BUMEX AND VANC PO. CALL LIGHT IN REACH.
--- NOTE | 2016-03-26 18:40 | NUR ---
NO CHANGES IN INITIAL ASSESSMENT. STIL REFUSES SCDs. CALL LIGHT IN REACH. WILL CONTINUE WITH PLAN OF CARE.
--- NOTE | 2016-03-26 20:00 | NUR ---
pt up to bathroom at this time.
--- NOTE | 2016-03-26 20:45 | NUR ---
PT RESTING QUIETLY WATCHING TV. DENIES ANY PAIN AT THIS TIME, REQUESTED SNACK. NURSE PROVIDED YESI. BED IN LOWEST POSITION, CALL LIGHT IN REACH, ASSESSMENT PER FLOWSHEET.
[2016-03-26 21:00] VITALS: BP 155/58
--- NOTE | 2016-03-26 23:40 | NUR ---
PT RESTING QUIETLY, DENIES ANY NEEDS AT THIS TIME, CALL LIGHT IN REACH, BED IN LOWEST POSITION, WILL CONITUE TO MONITOR.
[2016-03-27 00:45] VITALS: BP 162/59
--- NOTE | 2016-03-27 04:12 | NUR ---
PT UP TO BATHROOM AT THIS TIME. ASSITED TO AND BACK TO BED. CALL LIGHT IN REACH. WILL CONTINUE TO MONITOR.
[2016-03-27 05:00] VITALS: BP 150/58
--- NOTE | 2016-03-27 05:30 | NUR ---
RESTING QQUIETLY RESPIRATIONS WITH EASE AND UNLABORED.
--- NOTE | 2016-03-27 06:04 | NUR ---
PT UP TO BATHROOM, PULLED OUT IV. CATH TIP INTACT. BLEEDING STOPPED AND SITE CLEANED WITH ALCOHOL PREP. RE-SITED 20G TO RT FA. CLEANED SITE USING CHLOR-PREP PER PROTOCOL. FIRST ATTEMPT TO THREAD CATH WAS SUCCESSFUL INDICATED BY BLOOD RETURN. IV SECURED WITH TRANSLUCENT TAPE THEN COVERED WITH TRANSPARENT DRESSING. IV FLUSHED WITH 10CC SALINE WITH POSITIVE BLOOD RETURN. HOOKED TO NS INFUSION AT A RATE OF 75ML/HR. PT DENIES NEEDS AT THIS TIME. BED IN LOWEST POSITION, CALL LIGHT IN REACH. WILL CONITNUE TO MONITOR.
[2016-03-27 06:16] LABS: BASOPHILS 0.5 % (0.0-2.0); EOSINOPHILS 6.9 % (0-7); HEMATOCRIT 30.2 % (42.0-54.0); HEMOGLOBIN 9.3 g/dL (13.5-17.5); IMMATURE GRANULOCYTES 0.2 % (0-5); LYMPHOCYTES 34.2 % (15-50); MCH 30.4 pg (26.0-34.0); MCHC 30.8 g/dL (31.0-37.0); MCV 98.7 fL (80.0-100.0); MEAN PLATELET VOLUME 10.8 fL (7.4-10.4); MONOCYTES 13.8 % (2-11); NEUTROPHILS 44.4 % (40-80); PLATELET COUNT 160 10x3/uL (130-400); RBC 3.06 10x6/uL (4.20-6.10); RDW 14.1 % (11.5-14.5); WBC 6.4 10x3/uL (4.8-10.8)
[2016-03-27 06:58] LABS: ALBUMIN 3.1 g/dL (3.4-5.0); ANION GAP 17.2 mmol/L (8-16); BILIRUBIN - TOTAL 0.28 mg/dL (0.2-1.3); CALCIUM 8.3 mg/dL (8.5-10.1); CARBON DIOXIDE 18.4 mmol/L (21.0-32.0); CREATININE - SERUM 3.7 mg/dL (0.6-1.3); POTASSIUM - SERUM 4.6 mmol/L (3.5-5.1); PROTEIN - SERUM 7.3 g/dL (6.4-8.2)
--- NOTE | 2016-03-27 07:15 | NUR ---
AWAKE ALERT COLOR ADQ SKIN WARM AND DRY RESP EVEN AND UNLABORED AT PRESENT JETER CATH IN PLACE AT PRESENT .IV CONT AT 75CC/HR/IVAC.
--- NOTE | 2016-03-27 07:17 | NUR ---
PT GLUCOSE 55. GAVE ORANGE JUICE UNTIL BREAKFAST ARRIVES. PT [id number].
--- NOTE | 2016-03-27 09:00 | NUR ---
MEDS GIVEN MELY WELL ATR PRESENT.
[2016-03-27 09:42] VITALS: BP 134/55
--- NOTE | 2016-03-27 10:00 | NUR ---
QUIET IN ROOM AT PRESENT MELY WELL AT PRESENT N/C VOICED.
--- NOTE | 2016-03-27 12:00 | NUR ---
LUNCH TAKEN 100% agus well at present.
[2016-03-27 12:38] LABS: MAGNESIUM - SERUM 1.9 mg/dL (1.8-2.4); PHOSPHOROUS 4.9 mg/dL (2.5-4.9)
--- NOTE | 2016-03-27 12:54 | NUR ---
QUIET IN ROOM AT PRESENT DENIES ANY NEEDS AT THIS TIME.
--- NOTE | 2016-03-27 14:00 | NUR ---
ASLEEP AT PRESENT N/C VOICED AT PRESENT.
--- NOTE | 2016-03-27 16:00 | NUR ---
WATCHING TV QUIETLY AT PRESENT.
[2016-03-27 17:20] VITALS: BP 139/55
--- NOTE | 2016-03-27 17:28 | NUR ---
CONT TO HAVE SMALL LOOSE GREEN STOOLS.
[2016-03-27 19:00] VITALS: BP 112/62
--- NOTE | 2016-03-27 20:00 | NUR ---
ASSESSMENT PER FLOWSHEET. ASSISTED TO BR VOIDS AND HAS LOOSE STOOL. ASSISTED BACK TO BED SR UP X2 CALL LIGHT WITHIN REACH IV PATENT RT FOREARM OF D5W W/BICARB INFUSING AT 75CC'S/HRRESERVE LEFT ARM FISTULA NOTED.
--- NOTE | 2016-03-27 21:45 | NUR ---
MEDS GIVEN PER MAR. JCKO=460. HUMALOG INSULIN 4 UNITS GIVEN SUBC PER S/S.
--- NOTE | 2016-03-27 22:58 | NUR ---
SORE ON 2ND TOE RT FOOT SCAB NOTED.
[2016-03-28] VITALS: BP 128/52
--- NOTE | 2016-03-28 00:12 | NUR ---
EYES CLOED RESPIRATIONS WITH EASE AND UNLABORED.
--- NOTE | 2016-03-28 02:30 | NUR ---
RESTING QUIETLY DENIES NEEDS.
[2016-03-28 04:00] VITALS: BP 142/70
--- NOTE | 2016-03-28 04:21 | NUR ---
EYES CLOSED RESPIRATIONS WITH EASE AND UNLABORED.
[2016-03-28 06:18] LABS: BASOPHILS 0.5 % (0.0-2.0); EOSINOPHILS 8.2 % (0-7); HEMATOCRIT 30.7 % (42.0-54.0); HEMOGLOBIN 9.5 g/dL (13.5-17.5); LYMPHOCYTES 33.5 % (15-50); MCH 30.2 pg (26.0-34.0); MCHC 30.9 g/dL (31.0-37.0); MCV 97.5 fL (80.0-100.0); MEAN PLATELET VOLUME 10.6 fL (7.4-10.4); MONOCYTES 14.4 % (2-11); NEUTROPHILS 43.4 % (40-80); PLATELET COUNT 169 10x3/uL (130-400); RBC 3.15 10x6/uL (4.20-6.10); RDW 14.1 % (11.5-14.5); WBC 6.2 10x3/uL (4.8-10.8)
[2016-03-28 06:49] LABS: ALBUMIN 3.2 g/dL (3.4-5.0); ANION GAP 14.7 mmol/L (8-16); BILIRUBIN - TOTAL 0.34 mg/dL (0.2-1.3); CALCIUM 8.5 mg/dL (8.5-10.1); CREATININE - SERUM 3.5 mg/dL (0.6-1.3); POTASSIUM - SERUM 4.7 mmol/L (3.5-5.1); PROTEIN - SERUM 7.6 g/dL (6.4-8.2)
[2016-03-28 08:16] VITALS: BP 140/58
--- NOTE | 2016-03-28 08:25 | NUR ---
AWAKE AND ALERT. ORIENTED X3. NO C/O AT THIS TIME. LUNGS ARE CLEAR BILATERALLY, NO COUGH NOTED. SKIN IS INTACT WITHOUT REDNESS. UP TO BR WITH SBA. VOIDED CLEAR YELLOW URINE WITHOUT DIFFICULTY. SITTING UP ON SIDE OF BED EATING BREAKFAST. FISTULA TO LEFT UPPER ARM WITH GOOD BRUIT AND THRILL.
--- NOTE | 2016-03-28 10:31 | NUR ---
ATE ALL OF BREAKFAST. HAS BEEN UP TO BR 2 TIMES WITH DIARRHEA SINCE. WILL CONTINUE TO MONITOR.
[2016-03-28 11:29] LABS: MAGNESIUM - SERUM 1.8 mg/dL (1.8-2.4); PHOSPHOROUS 4.6 mg/dL (2.5-4.9)
[2016-03-28 12:09] VITALS: BP 140/54
--- NOTE | 2016-03-28 12:30 | NUR ---
FSBS 204. GIVEN 8 UNITS INSULIN SUBQ PER SS. LUNCH SERVED IN ROOM. FEEDS SELF.
--- NOTE | 2016-03-28 13:43 | NUR ---
Patient Name: REMIGIO SARAH Admission Status: Urgent Accout number: [id number] Admission Date: 03-25-2016 : 1945 Admission Diagnosis: Attending: NAA Current LOS: 3 Anticipated DC Date: 03-30-2016 Planned Disposition: Home with Home Health Primary Insurance: MEDICARE A & B Discharge Planning Comments: CM MET WITH PATIENT WITH D/C NEEDS AND PLANS. PATIENT STATED HE LIVES ALONE AND HIS SISTER WILL PICK HIM UP AT DISCHARGE. PATIENT STATED HE HAS 4 STEPS W/RAILS TO ENTER HOME AND NO STAIRS INSIDE. PATIENT STATED HE HAS A CANE, SHOWER CHAIR, AND WALKER AT HOME. PATIENTS PCP IS DR. WEBB AND PHARMACY IS [facility] AT [facility]. PATIENT IS CURRENT WITH APR. CM WILL CONTINUE TO FOLLOW PATIENT WITH D/C NEEDS AND PLANS. PCP DR. WEBB [facility] [phone] TASNEEM (SISTER) [phone] Water Well Driller: Aaliyah Ryan Is the patient Alert and Oriented? Yes 0 * How many steps to enter\exit or inside your home? 4 W/RAILS 0 * PCP DR. WEBB 0 * Pharmacy [facility] 0 * Preadmission Environment Home Alone 0 * ADLs Independent 0 * Equipment Cane Shower Chair Walker 0 * List name and contact numbers for known caregivers / representatives who currently or will assist patient after discharge: TASNEEM (SISTER) [phone] 0 * Community resources currently utilized Home Health 0 * Please name any agencies selected above. [facility] 0 * Additional services required to return to the preadmission environment? Yes 0 * Can the patient safely return to the preadmission environment? Yes 0 * Has this patient been hospitalized within the prior 30 days at any hospital? Yes 0 Grand Total: 0
--- NOTE | 2016-03-28 14:06 | NUR ---
WOUND CARE CONSULT: RIGHT FOOT/#2 TOE. #1 TOP OF TOE BELOW TOENAIL. DRY SCABBED AREA. AFTER CLEANSING WELL AND APPLYING LOTION THE SCAB CAME OFF REVEALING A 0.5CM X 0.3CM OPEN AREA. IT IS SUPERFICIAL/NO DEPTH/HEALING. #2 SIDE OF TOE (NEXT TO #3 TOE) DRY/SCABBED AREA. CLEANSED WELL AND LOTION APPLIED/ MOST OF SCAB WAS REMOVED REVEALING A WOUND MEASURING 1CM X 1CM X 0.4CM. THE WOUND BED IS RED/BEEFY AND MOIST. RECOMMEND APPLYING A SMALL PIECE OF MAXORB AG TO #2 WOUND AND COVERING WITH 4X4. DON'T FEEL DEBRIDEMENT IS NEEDED AT THIS TIME. WILL CONTINUE MONITORING.
[2016-03-28 15:37] VITALS: BP 149/57
--- NOTE | 2016-03-28 17:00 | NUR ---
FSBS 92. NO COVERAGE REQUIRED. SEVEN SERVED IN ROOM.
--- NOTE | 2016-03-28 18:40 | NUR ---
ATE MOST OF SUPPER. DENIES NEEDS. NO CHANGES NOTED.
--- NOTE | 2016-03-28 19:28 | NUR ---
PATIENT RESTING IN SEMI-FOWLERS POSITION. PATIENT DENIES NEEDS AT THIS TIME. PATIENT'S BED IN LOWEST POSITION AND CALL LIGHT IS WITHIN REACH.
[2016-03-29 00:23] VITALS: BP 149/56
[2016-03-29 06:59] LABS: BASOPHILS 0.4 % (0.0-2.0); EOSINOPHILS 6.1 % (0-7); HEMATOCRIT 31.1 % (42.0-54.0); HEMOGLOBIN 9.6 g/dL (13.5-17.5); IMMATURE GRANULOCYTES 0.2 % (0-5); LYMPHOCYTES 34.5 % (15-50); MCH 29.6 pg (26.0-34.0); MCHC 30.9 g/dL (31.0-37.0); MEAN PLATELET VOLUME 10.4 fL (7.4-10.4); MONOCYTES 15.4 % (2-11); NEUTROPHILS 43.4 % (40-80); PLATELET COUNT 190 10x3/uL (130-400); RBC 3.24 10x6/uL (4.20-6.10); WBC 5.5 10x3/uL (4.8-10.8)
[2016-03-29 07:28] LABS: ALBUMIN 3.3 g/dL (3.4-5.0); ANION GAP 15.9 mmol/L (8-16); BILIRUBIN - TOTAL 0.3 mg/dL (0.2-1.3); CARBON DIOXIDE 20.5 mmol/L (21.0-32.0); CREATININE - SERUM 3.6 mg/dL (0.6-1.3); POTASSIUM - SERUM 4.4 mmol/L (3.5-5.1); PROTEIN - SERUM 7.5 g/dL (6.4-8.2)
[2016-03-29 08:09] VITALS: BP 131/53
--- NOTE | 2016-03-29 08:31 | NUR ---
AWAKE AND ALERT. ORIENTED X3. NO C/O AT THIS TIME. LUNGS ARE CLEAR BILATERALLY, NO COUGH NOTED. IV TO RIGHT FOREARM CONVERTED TO SL. NO REDNESS NOTED TO SAME. SKIN IS INTACT WITHOUT REDNESS. DENIES NEEDS. SITTING UP ON SIDE OF BED EATING BREAKFAST.
--- NOTE | 2016-03-29 10:00 | NUR ---
ATE MOST OF BREAKFAST. UP TO BR WITH MIN ASSIST. HAD LARGE AMOUNT OF LOOSE WATERY STOOL. SKIN CARE PER SELF. DENIES NEEDS. REPOSITIONED IN BED FOR COMFORT.
[2016-03-29 11:44] VITALS: BP 145/58
--- NOTE | 2016-03-29 12:00 | NUR ---
FSBS 197. GIVEN 2 UNITS HUMALOG SUBQ PER SS.
--- NOTE | 2016-03-29 13:43 | NUR ---
NUTRITION MONITORING & EVAL CHART REVIEWED. PT IN ISOLATION. TOLERATING DIABETIC DIET. RD FOLLOWING
[2016-03-29 16:03] VITALS: BP 145/59
[2016-03-29 21:14] VITALS: BP 152/62
--- NOTE | 2016-03-29 23:50 | NUR ---
PATIENT SITTING AT THE SIDE OF THE BED. PATIENT'S MEDS GIVEN. PATIENT DENIES OTHER NEEDS AT THIS TIME. BED IN LOWEST POSITION AND CALL LIGHT WITHIN REACH.
[2016-03-30 04:00] VITALS: BP 95/47
[2016-03-30 05:23] LABS: BASOPHILS 0.5 % (0.0-2.0); HEMATOCRIT 30.7 % (42.0-54.0); HEMOGLOBIN 9.5 g/dL (13.5-17.5); IMMATURE GRANULOCYTES 0.2 % (0-5); LYMPHOCYTES 41.5 % (15-50); MCHC 30.9 g/dL (31.0-37.0); MCV 96.8 fL (80.0-100.0); MEAN PLATELET VOLUME 10.1 fL (7.4-10.4); MONOCYTES 17.8 % (2-11); PLATELET COUNT 180 10x3/uL (130-400); RBC 3.17 10x6/uL (4.20-6.10); WBC 5.5 10x3/uL (4.8-10.8)
[2016-03-30 05:47] LABS: ALBUMIN 3.2 g/dL (3.4-5.0); ANION GAP 17.1 mmol/L (8-16); BILIRUBIN - TOTAL 0.4 mg/dL (0.2-1.3); CALCIUM 8.1 mg/dL (8.5-10.1); CARBON DIOXIDE 20.4 mmol/L (21.0-32.0); CREATININE - SERUM 3.7 mg/dL (0.6-1.3); POTASSIUM - SERUM 4.5 mmol/L (3.5-5.1); PROTEIN - SERUM 7.1 g/dL (6.4-8.2)
--- NOTE | 2016-03-30 07:00 | NUR ---
REPORT RECIEVED ASSUMED CARE. PATIENT IN BED WITH IV ITNACT. NO COMPLAINTS AT THIS TIME. CALL LIGHT WITHIN REACH.
[2016-03-30 08:56] VITALS: BP 136/61
[2016-03-30 15:53] VITALS: BP 147/59
--- NOTE | 2016-03-30 18:38 | NUR ---
PATIENT SITTING UP IN BED WITH IV INTACT. NO COMPLAINTS. FAMILY AT BEDSIDE. CALL LIGHT WITHIN REACH.
[2016-03-30 20:00] VITALS: BP 124/56
--- NOTE | 2016-03-30 20:00 | NUR ---
ASSESSMENT PER FLOWSHEET. IV PATENT RT FOREARM SALINE LOCK. PT IN ENTERIC ISOLATION FOR C. DIF. DRESSING TO SECOND TOE RT FOOT C/D/I. FISTULA NOTED TO LEFT ARM RESERVE LEFT ARM. REFUSES SCD'S DR. LOPEZ HERE TO VISIT WITH PATIENT.
--- NOTE | 2016-03-30 21:00 | NUR ---
MEDS GIVEN PER MAR. FSBS=75. NO COVERAGE NEEDED. LANTUS HELD DUE TO LOW BLOOD SUGAR. ADA SNACK GIVEN TO PATIENT. 100% CONSUMED OF ART CRACKERS AND MILK.
--- NOTE | 2016-03-30 21:35 | NUR ---
UP AD RYAN TO BR HAD LOOSE BROWN STOOL SPECIMEN OBTAINED AND SENT TO LAB.
[2016-03-31] VITALS: BP 130/62
--- NOTE | 2016-03-31 | NUR ---
RESTING QUIETLY IN BED DENIES NEEDS. SR UP X2 CALL LIGHT WITHIN REACH.
--- NOTE | 2016-03-31 01:32 | NUR ---
EYES CLOSED RESPIRATIONS WITH EASE AND UNLABORED.
[2016-03-31 04:00] VITALS: BP 136/65
[2016-03-31 05:35] LABS: BASOPHILS 0.7 % (0.0-2.0); EOSINOPHILS 9.4 % (0-7); HEMATOCRIT 31.5 % (42.0-54.0); HEMOGLOBIN 9.6 g/dL (13.5-17.5); IMMATURE GRANULOCYTES 0.3 % (0-5); LYMPHOCYTES 43.5 % (15-50); MCH 29.7 pg (26.0-34.0); MCHC 30.5 g/dL (31.0-37.0); MCV 97.5 fL (80.0-100.0); MEAN PLATELET VOLUME 10.6 fL (7.4-10.4); MONOCYTES 18.6 % (2-11); NEUTROPHILS 27.5 % (40-80); PLATELET COUNT 218 10x3/uL (130-400); RBC 3.23 10x6/uL (4.20-6.10); WBC 5.9 10x3/uL (4.8-10.8)
--- NOTE | 2016-03-31 05:45 | NUR ---
UP TO BR HAD LARGE SEMI SOFT BROWN STOOL SECONG TIME TONIGHT. LOMOTIL TAB ONE PO GIVEN FOR DIARRHEA. FSBS=63. ORANGE JUICE X2 CONTAINERS WITH 2 SUGARS ADDED GIVEN FOR BLOOD SUGAR RESULTS.
[2016-03-31 06:05] LABS: ALBUMIN 3.2 g/dL (3.4-5.0); ANION GAP 17.6 mmol/L (8-16); BILIRUBIN - TOTAL 0.33 mg/dL (0.2-1.3); CALCIUM 8.6 mg/dL (8.5-10.1); CREATININE - SERUM 4.1 mg/dL (0.6-1.3); POTASSIUM - SERUM 4.6 mmol/L (3.5-5.1); PROTEIN - SERUM 7.8 g/dL (6.4-8.2)
--- NOTE | 2016-03-31 07:00 | NUR ---
REPORT RECIEVED ASSUMED CARE. PATIENT IN BED WITH NO COMPLAINTS. IV INTACT. CALL LIGHT WITHIN REACH.
[2016-03-31 07:51] VITALS: BP 137/53
[2016-03-31 12:19] VITALS: BP 142/65
[2016-03-31 15:44] VITALS: BP 149/59
--- NOTE | 2016-03-31 16:00 | NUR ---
PATIENT DRESSING TO RIGHT MIDDLE TOE REMOVED AND TOE CLEANED PER PATIENT REQUEST. PATIENT HAS NO COMPLAINTS. IV INTACT. CALL LIGHT WITHIN REACH.
--- NOTE | 2016-03-31 18:45 | NUR ---
PATIENT IN BED WITH IV INTACT. NO COMPLAINTS AT THIS TIME. CALL LIGHT WITHIN REACH.
--- NOTE | 2016-03-31 19:09 | CN ---
PATIENT NAME:REMIGIO SARAH MEDICAL RECORD: [id number] : 45 LOCATION:D.[facility]5 ADMIT DATE: 03/25/16 ACCOUNT: [id number] CONSULTING PHYSICIAN: JENI OCAMPO MD REFERRING PHYSICIAN: VALERY REESE MD DATE OF CONSULTATION: 03/30/2016 Gastroenterology Consultation REFERRING PHYSICIAN: Valery Reese MD. HISTORY OF PRESENT ILLNESS: The patient is a 70-year-old white male with advanced chronic renal disease stage IV, who was basically admitted to the hospital with persistent reported C. difficile diarrhea that has been present for the past month or so. He has subsequently been a little hydrated and is admitted with a creatinine elevated over baseline. He has been treated for several weeks with oral vancomycin. Stool is positive for antigen, but actually negative for toxin. His white count is normal at 5000. He has not had an endoscopy for this. He is currently on Flagyl, oral vancomycin, probiotics and Imodium was started yesterday. He claims he has had 8 stools this morning, which are very watery. There is no pain and no blood present. ALLERGIES: No known drug allergies. PAST MEDICAL HISTORY: As above. He has diabetes and thyroid disease as well as hypertension, coronary artery disease, status post stent placement, as well as cataracts. PAST SURGICAL HISTORY: Remarkable for stent placement, cataract surgery and AV fistula placement. CURRENT MEDICATIONS: Include oral vancomycin, Questran was started today, insulin, Bumex, Pravachol, lisinopril, aspirin, Bystolic, Synthroid, Neurontin. SOCIAL HISTORY: The patient is a former smoker. Denies alcohol use. FAMILY HISTORY: Negative for GI disease. REVIEW OF SYSTEMS: Noncontributory other than HPI. PHYSICAL EXAMINATION: GENERAL: Reveals an elderly white male in no acute distress. VITAL SIGNS: Stable, afebrile. CHEST: Clear. HEART: Regular rate and rhythm. ABDOMEN: Soft, nontender. EXTREMITIES: No edema. LABORATORY DATA: Reveals a white count of 5000, hematocrit 30, MCV of 96, platelet count 180,000. Electrolytes are normal, BUN 45, creatinine 3.7. Liver enzymes are normal. KUB was normal. IMPRESSION: 1. Apparent persistent Clostridium difficile toxin positive diarrhea, still with diarrhea despite appropriate therapy, associated normal white cell count of CONSULT REPORT [id number] REMIGIO SARAH unclear etiology. 2. Significant renal disease. RECOMMENDATION: 1. Flexible sigmoidoscopy on Monday. 2. Stool culture. 3. Stool fecal leukocytes. TRANSINT:[id number] Voice Confirmation ID: [id number] DOCUMENT ID: [id number] JENI OCAMPO MD at 1909 CC: REFUGIO RAI MD and VALERY REESE MD [id number] DICTATION DATE: 03/30/16 1308 JOB PRESS OPERATOR: 03/30/16 1855 ADM IN [facility] [address] [id number]
--- NOTE | 2016-03-31 20:00 | NUR ---
PT SITTING UP IN BED WATCHING TV, DISCUSSED PROCEDURE FOR TOMORROW. PT VERBALIZES UNDERSTANDING OF PRE-PROCEDURE PREPERATIONS IN THE MORNING. DENIES ANY NEEDS AT THIS TIME, BED IN LOWEST POSITION, CALL LIGHT IN REACH, ASSESSMENT PER FLOWSHEET.
[2016-03-31 21:00] VITALS: BP 144/58
[2016-04-01 00:30] VITALS: BP 155/58
--- NOTE | 2016-04-01 00:51 | NUR ---
PT REMAINS IN ISOLATION AT THIS TIME. SOUND ASLEEP WITH EASY RESPIRATIONS AND NO O2 IN PLACE. THERE IS A URINAL AT THE BEDSIDE AND THE BED IS LOW, RAILS UP X'S 2 WITH THE CALL LIGHT AT HAND.
--- NOTE | 2016-04-01 03:32 | NUR ---
PT RESTING QUIETLY, BREATHING EVEN AND UNLABORED ON ROOM AIR. CALL LIGHT IN REACH, WILL CONTINUE TO MONITOR.
[2016-04-01 05:00] VITALS: BP 138/56
--- NOTE | 2016-04-01 05:10 | NUR ---
PT AAOX4. EXPLAINED PROCEDURE TO PT AND PREP'D FOR TAP WATER ENEMA. PT VERBALIZED UNDERSTANDING OF ENEMA PROCEDURE. PT LAID ON LEFT SIDE AND EXPOSED BUTTOCK, ENEMA TUBING INSERTED TO THE RECTUM APPROX. 2 INCHS AND TAPWATER INFUSED BY GRAVITY. PT TOLERATED APPROX 500CC OF TAP WATER BEFORE C/O CRAMPING. INFUSION SLOWED AND PT WAS ABLE TO TOLERATE ANOTHER 200CC. TUBE REMOVED INTACT TO 2INCH. PT INSTRUCTED TO HOLD INFUSION LONG POSSIBLE BEFORE GOING TO THE BATHROOM. PT VERBALIZED UNDERSTANDING.
--- NOTE | 2016-04-01 05:40 | NUR ---
PT SITTING UP TO SIDE OF BED. REPORTED, " ALL OF THAT CAME OUT." EXPLAINED TO THE PT THAT THE DR ORDERED A SERIES OF 4 ENEMAS AND THAT WE WOULD NEED TO DO AT LEAST 1 MORE BEFORE SHIFT CHANGE. PT VERBALIZED UNDERSTANDING AND ASKED ME TO COME BACK IN 10-15 MINUTES.
[2016-04-01 05:53] LABS: BASOPHILS 0.4 % (0.0-2.0); EOSINOPHILS 9.4 % (0-7); HEMATOCRIT 29.5 % (42.0-54.0); HEMOGLOBIN 9.1 g/dL (13.5-17.5); IMMATURE GRANULOCYTES 0.6 % (0-5); LYMPHOCYTES 35.5 % (15-50); MCHC 30.8 g/dL (31.0-37.0); MCV 97.4 fL (80.0-100.0); MEAN PLATELET VOLUME 10.1 fL (7.4-10.4); MONOCYTES 19.8 % (2-11); NEUTROPHILS 34.3 % (40-80); PLATELET COUNT 209 10x3/uL (130-400); RBC 3.03 10x6/uL (4.20-6.10); WBC 5.2 10x3/uL (4.8-10.8)
[2016-04-01 06:32] LABS: ANION GAP 16.8 mmol/L (8-16); BILIRUBIN - TOTAL 0.26 mg/dL (0.2-1.3); CALCIUM 8.4 mg/dL (8.5-10.1); CARBON DIOXIDE 20.1 mmol/L (21.0-32.0); CREATININE - SERUM 4.4 mg/dL (0.6-1.3); POTASSIUM - SERUM 4.9 mmol/L (3.5-5.1); PROTEIN - SERUM 7.3 g/dL (6.4-8.2)
--- NOTE | 2016-04-01 07:15 | NUR ---
ENEMAS TIMES 2 750CC GIVEN MELY WELL RET CLEAR TO BED CLEAR RET WITH STREAKS OF BLOOD MELY WELL CONT NPO FOR FLEX SIG.
[2016-04-01 07:51] VITALS: BP 128/47
--- NOTE | 2016-04-01 11:00 | NUR ---
FAMILY AT BEDSIDE AT PRESENT.
--- NOTE | 2016-04-01 11:02 | NUR ---
TO GI LAB VIA BED FAMILY AT BEDSIDE.
--- NOTE | 2016-04-01 12:19 | NUR ---
NUTRITION MONITORING & EVAL CHART REVIEWED. PT REMAINS IN ISOLATION. 75 TO 100% INTAKE DIABETIC DIET. RD FOLLOWING
--- NOTE | 2016-04-01 13:15 | NUR ---
RET FROM GI LAB AWAKE ALERT SLEEPY BUT AROUSABLE AT PRESENT N/C AT PRESENT.
--- NOTE | 2016-04-01 15:00 | NUR ---
REMAINS ASLEEP EASY TO AROUSE AT PRESENT N/C.
--- NOTE | 2016-04-01 16:00 | NUR ---
SLEEPING QUIETLY AT PRESENT RESP EVEN AND UNLABORED AT PRESENT.
[2016-04-01 16:37] VITALS: BP 139/64
--- NOTE | 2016-04-01 18:21 | NUR ---
SITTING UP QUIETLY IN BED AT PRESENT IV CONT VIA RT UPPER ARM AT PRESENT.
[2016-04-01 19:00] VITALS: BP 144/63
--- NOTE | 2016-04-01 19:45 | NUR ---
PT SITTING UP TO SIDE OF BED WATCHING TV. BREATHING EVEN AND UNLABORED ON ROOM AIR. AAOX4 DENIES ANY NEEDS AT THIS TIME. BED IN LOWSET POSITION, CALL LIGHT IN REACH, ASSESSMENT PER FLOWSHEET.
--- NOTE | 2016-04-02 01:02 | NUR ---
PT RESTING QUIETLY WITH EYES CLOSED, RESPERATIONS EVEN AND UNLABORED ON ROOM AIR, NO S/S OF DISTRESS. CALL LIGHT IN REACH, WILL CONITNUE TO MONITOR.
[2016-04-02 04:00] VITALS: BP 138/60
--- NOTE | 2016-04-02 04:09 | NUR ---
PATIENT UP TO THE RESTROOM. PATIENT DENIES NEEDS AT THIS TIME. PATIENT'S BED IS IN THE LOWEST POSITION AND CALL LIGHT IS WITHIN REACH.
--- NOTE | 2016-04-02 05:01 | NUR ---
PT UP TO BEDSIDE, DENIES ANY NEEDS OR PAIN AT THIS TIME. CALL LIGHT IN REACH, BED IN LOWEST POSITION, BED ALARM ON. WILL CONITNUE TO MONITOR
[2016-04-02 06:06] LABS: BASOPHILS 0.4 % (0.0-2.0); EOSINOPHILS 7.4 % (0-7); HEMATOCRIT 32.7 % (42.0-54.0); IMMATURE GRANULOCYTES 0.4 % (0-5); LYMPHOCYTES 29.3 % (15-50); MCH 30.1 pg (26.0-34.0); MCHC 30.6 g/dL (31.0-37.0); MCV 98.5 fL (80.0-100.0); MEAN PLATELET VOLUME 10.3 fL (7.4-10.4); MONOCYTES 15.4 % (2-11); NEUTROPHILS 47.1 % (40-80); PLATELET COUNT 234 10x3/uL (130-400); RBC 3.32 10x6/uL (4.20-6.10); RDW 14.4 % (11.5-14.5)
[2016-04-02 06:10] LABS: WBC 7.5 10x3/uL (4.8-10.8)
[2016-04-02 06:31] LABS: ALBUMIN 3.3 g/dL (3.4-5.0); ANION GAP 16.4 mmol/L (8-16); BILIRUBIN - TOTAL 0.26 mg/dL (0.2-1.3); CALCIUM 8.6 mg/dL (8.5-10.1); CARBON DIOXIDE 21.7 mmol/L (21.0-32.0); CREATININE - SERUM 4.1 mg/dL (0.6-1.3); POTASSIUM - SERUM 5.1 mmol/L (3.5-5.1); PROTEIN - SERUM 8.2 g/dL (6.4-8.2)
[2016-04-02 08:55] VITALS: BP 143/73
--- NOTE | 2016-04-02 09:00 | NUR ---
ASSESSMENT PER FLOW SHEET.PT WITHOUT DISTRESS.CALL LIGHT IN REACH.ISOLATION MAINTAINED
[2016-04-02 13:04] VITALS: BP 133/63
--- NOTE | 2016-04-02 13:51 | NUR ---
BUTTOCKS GETTING REDDER FROM LOOSE STOOLS.BUTT PASTE APPLIED PER OSBALDO HANSEN
[2016-04-02 16:03] VITALS: BP 132/65
--- NOTE | 2016-04-02 17:05 | NUR ---
REMAINS WITHOUT DISTRESS.DENIES NEEDS.CALL LIGHT IN REACH
[2016-04-02 20:38] VITALS: BP 152/71
[2016-04-03] VITALS: BP 135/73
[2016-04-03 04:00] VITALS: BP 132/54
[2016-04-03 05:47] LABS: BASOPHILS 0.3 % (0.0-2.0); EOSINOPHILS 4.5 % (0-7); HEMATOCRIT 27.5 % (42.0-54.0); HEMOGLOBIN 8.6 g/dL (13.5-17.5); IMMATURE GRANULOCYTES 0.3 % (0-5); LYMPHOCYTES 26.6 % (15-50); MCH 30.7 pg (26.0-34.0); MCHC 31.3 g/dL (31.0-37.0); MCV 98.2 fL (80.0-100.0); MEAN PLATELET VOLUME 9.6 fL (7.4-10.4); MONOCYTES 16.4 % (2-11); NEUTROPHILS 51.9 % (40-80); PLATELET COUNT 192 10x3/uL (130-400); RDW 14.4 % (11.5-14.5); WBC 6.9 10x3/uL (4.8-10.8)
[2016-04-03 06:09] LABS: ALBUMIN 2.7 g/dL (3.4-5.0); ANION GAP 14.3 mmol/L (8-16); BILIRUBIN - TOTAL 0.3 mg/dL (0.2-1.3); CARBON DIOXIDE 24.4 mmol/L (21.0-32.0); CREATININE - SERUM 3.7 mg/dL (0.6-1.3); PROTEIN - SERUM 6.9 g/dL (6.4-8.2)
[2016-04-03 06:10] LABS: POTASSIUM - SERUM 3.7 mmol/L (3.5-5.1)
--- NOTE | 2016-04-03 06:28 | NUR ---
FOLLOW UP FSBS 121 AFTER 1/2 AMP OF D5. PT AAOX4, BREATHING EVEN AND UNLABORED ON ROOM AIR. DENIES ANY NEEDS AT THIS TIME. CALL LIGHT IN REACH. JON IS HIS PRIMARY NURSE, SHE IS AWARE AND WILL FOLLOW FROM HERE.
--- NOTE | 2016-04-03 07:00 | NUR ---
PT REC'D FROM [facility]. RESTING IN BED WITH EYES CLOSED. NO SIGNS OF DISTRESS. EASILY AROUSED. AAOX4. NO COMPLAINTS OF PAIN. PT STATES HE HAS ALREADY HAD TWO EPISODE OF DIARRHEA THIS MORNING. WILL ADMINISTER ANTIDIARRHEAL WITH MORNING MEDS. LUNG SOUNDS CLEAR AND EQUAL BILAT. BOWEL SOUNDS ACTIVE X4 QUADRANTS, ABD ROUND, AND SOFT TO PALPATION. SORE TO R 2ND TOE IS RED AND SWOLLEN. NO DRAINAGE NOTED. BED LOW, CALL LIGHT IN REACH, DENIES NEEDS. WILL CPOC.
--- NOTE | 2016-04-03 07:44 | NUR ---
PATIENT SITTING UP ON SIDE OF BED ALERT. NO SIGNS OF DISTRESS NOTED. BED IN LOW POSITION. CALL LIGHT IN REACH. BED IN LOW POSITION.
[2016-04-03 09:00] VITALS: BP 135/60
--- NOTE | 2016-04-03 09:05 | NUR ---
MORNING MEDS PASSED AT THIS TIME. PT SITTING UP ON SIDE OF BED EATING BREAKFAST. 20 UNITS OF LANTUS ADMINISTERED PER ORDER TO R ARM. NO COMPLAINTS, BED LOW, CALL LIGHT IN REACH, CPOC.
--- NOTE | 2016-04-03 12:00 | NUR ---
FSBS 171. 4 UNITS OF INSULIN ADMINISTERED PER SS TO R ARM. NO COMPLAINTS, BED LOW, CALL LIGHT IN REACH, WILL CPOC.
[2016-04-03 12:45] VITALS: BP 137/56
--- NOTE | 2016-04-03 14:00 | NUR ---
PT RESTING IN BED WITH EYES CLOSED. NO SIGNS OF DISTRESS. RESP EVEN AND UNLABORED. BED LOW, CALL LIGHT IN REACH, WILL CPOC.
[2016-04-03 16:28] VITALS: BP 140/62
--- NOTE | 2016-04-03 16:30 | NUR ---
CURRENT FSBS 102. NO INSULIN ADMINISTERED PER SS. BED LOW, CALL LIGHT IN REACH, WILL CPOC.
--- NOTE | 2016-04-03 17:43 | NUR ---
PT UP IN BED WITH VISITOR IN ROOM. DINNER TRAY AT BEDSIDE. BED LOW, CALL LIGHT IN REACH, WILL CPOC.
[2016-04-03 19:00] VITALS: BP 108/63
--- NOTE | 2016-04-03 23:12 | NUR ---
PT LAYING IN BED NO DISTRESS OBSERVED CALL LIGHT IN REACH SRX2 BED LOW AND LOCKED WILL MONITOR
[2016-04-04] VITALS: BP 137/48
[2016-04-04 03:06] LABS: OVA + PARASITE EXAM Final report (())
[2016-04-04 04:00] VITALS: BP 146/64
[2016-04-04 05:41] LABS: BASOPHILS 0.4 % (0.0-2.0); EOSINOPHILS 7.5 % (0-7); HEMOGLOBIN 8.9 g/dL (13.5-17.5); IMMATURE GRANULOCYTES 0.4 % (0-5); LYMPHOCYTES 27.4 % (15-50); MCH 29.9 pg (26.0-34.0); MCHC 30.7 g/dL (31.0-37.0); MCV 97.3 fL (80.0-100.0); MEAN PLATELET VOLUME 10.1 fL (7.4-10.4); NEUTROPHILS 47.3 % (40-80); PLATELET COUNT 203 10x3/uL (130-400); RBC 2.98 10x6/uL (4.20-6.10); RDW 14.5 % (11.5-14.5); WBC 6.7 10x3/uL (4.8-10.8)
[2016-04-04 06:22] LABS: ALBUMIN 2.8 g/dL (3.4-5.0); ANION GAP 14.3 mmol/L (8-16); BILIRUBIN - TOTAL 0.3 mg/dL (0.2-1.3); CALCIUM 8.1 mg/dL (8.5-10.1); CARBON DIOXIDE 24.8 mmol/L (21.0-32.0); CREATININE - SERUM 3.5 mg/dL (0.6-1.3); POTASSIUM - SERUM 4.1 mmol/L (3.5-5.1); PROTEIN - SERUM 7.4 g/dL (6.4-8.2)
[2016-04-04 06:38] LABS: % SATURATION 29 % (15-55); IRON 51 ug/dl (35-150); TOTAL IRON BIND CAPACITY 171 ug/dl (260-445); UNSAT IRON BIND CAPACITY 120 ug/dl (150-375)
[2016-04-04 08:59] VITALS: BP 155/68
--- NOTE | 2016-04-04 09:00 | NUR ---
REPORT RECIEVED, ASSUMED CARE. PATIENT REFUSED MEDS FOR DODIE MULLER. STATED HE IS TIRED OF THIS AND WANTS TO GO HOME. PATIENT IN BED AT THIS TIME WITH EYES CLOSED RESTING QUIETLY. NO COMPLAINTS OR SIGNS OF DISTRESS. CALL LIGHT WITHIN REACH.
--- NOTE | 2016-04-04 12:15 | NUR ---
PATIENT REFUSED BS AT THIS TIME.
[2016-04-04 12:32] VITALS: BP 151/71
[2016-04-04 16:08] VITALS: BP 147/64
--- NOTE | 2016-04-04 16:30 | NUR ---
PATIENT REFUSES MEDS AGAIN. STATED HE DIDNT WANT THEM. IV INTACT. CALL LIGHT WITHIN REACH.
--- NOTE | 2016-04-04 17:54 | PRO ---
PATIENT:REMIGIO SARAH MEDICAL RECORD: [id number] : 45 LOCATION:D.MS [facility]2225 ADMISSION DATE: 03/25/16 PROCEDURE PERFORMED BY: JENI LOREDO MD DATE OF PROCEDURE: 04/01/2016 ROADSIDE MECHANIC: Jeni Loredo MD INDICATION The patient is a 70-year-old white male who was basically admitted with persistent diarrhea over the past month. He has had a positive CDT stool a couple of times; however, last time revealed only the antigen and not actually the toxin present. He has been on appropriate antibiotic therapy with oral vancomycin and Flagyl, but is still having some diarrhea. His white count is normal. He is now for sigmoidoscopy. PREMEDICATION: Taper anesthesia. INSTRUMENT: Olympus video adjustable colonoscope. FINDINGS: Rectal exam was normal. The colonoscope was passed through the rectum and to the splenic flexure without difficulty. Prep was fair. Exam was remarkable for liquid stool as well as minimal diffuse "colitis" with granularity, erythema and mucus, but no obvious pseudomembranes seen. Random biopsies were obtained. The rest of exam was normal. I also took a stool sample for repeat stool testing for CDT, culture and wbc's. The patient tolerated the procedure well without any complication. IMPRESSION: 1. Mild diffuse "colitis" with mucus granularity and mild erythema of unclear etiology, status post random biopsy and repeat stool collection. Again, there was no obvious pseudomembranes seen. 2. Otherwise, normal flexible sigmoidoscopy. RECOMMENDATIONS: 1. Continue current meds. 2. Follow up biopsy results and repeat stool studies. 3. Further recommendations depending on those studies. TRANSINT:[id number] Voice Confirmation ID: [id number] DOCUMENT ID: [id number] JENI LOREDO MD at 1754 CC: REFUGIO RAI MD and ARIS MOE MD [id number] DICTATION DATE: 04/01/166 CHARGE RN: 04/02/16 0216 ADM IN [place] [id number]
[2016-04-04 19:00] VITALS: BP 106/80
--- NOTE | 2016-04-04 20:00 | NUR ---
ASSESSMENT PER FLOWSHEET. PT SITTING ON SIDE OF BED. IV PATENT RT ARM SALINE LOCKED. PT IN CONTACT ISOLATION, DRESG TO SECOND TOE RT FOOT C/D/I. DENIES NEEDS.
--- NOTE | 2016-04-04 21:30 | NUR ---
MEDS GIVEN PER APR. UOWU=[id number]. NO COVERAGE NEEDED. NO DIARRHEA NOTED THIS EVENING.
--- NOTE | 2016-04-04 21:45 | NUR ---
HELD LANTUS INSULIN DFAR=[id number]. GAVE PT SOME SHERBERT FOR SNACK. PT'S APPETITE HAS DECREASED.
--- NOTE | 2016-04-05 | NUR ---
EYES CLOSED RESPIRATIONS WITH EASE AND UNLABORED.
--- NOTE | 2016-04-05 02:12 | NUR ---
EYES CLOSED RESPIRATIONS WITH EASE AND UNLABORED.
[2016-04-05 04:00] VITALS: BP 158/70
--- NOTE | 2016-04-05 04:14 | NUR ---
AWAKE VOIDS IN URINAL SITTING ON SIDE OF BED DENIES NEEDS.
[2016-04-05 05:57] LABS: BASOPHILS 0.5 % (0.0-2.0); EOSINOPHILS 9.2 % (0-7); HEMATOCRIT 29.8 % (42.0-54.0); HEMOGLOBIN 8.9 g/dL (13.5-17.5); IMMATURE GRANULOCYTES 0.3 % (0-5); LYMPHOCYTES 28.8 % (15-50); MCH 29.6 pg (26.0-34.0); MCHC 29.9 g/dL (31.0-37.0); MEAN PLATELET VOLUME 9.5 fL (7.4-10.4); NEUTROPHILS 48.2 % (40-80); PLATELET COUNT 170 10x3/uL (130-400); RBC 3.01 10x6/uL (4.20-6.10); RDW 14.6 % (11.5-14.5)
[2016-04-05 06:33] LABS: ALBUMIN 2.9 g/dL (3.4-5.0); ANION GAP 15.3 mmol/L (8-16); BILIRUBIN - TOTAL 0.3 mg/dL (0.2-1.3); CALCIUM 8.1 mg/dL (8.5-10.1); CARBON DIOXIDE 26.1 mmol/L (21.0-32.0); CREATININE - SERUM 3.1 mg/dL (0.6-1.3); POTASSIUM - SERUM 4.4 mmol/L (3.5-5.1); PROTEIN - SERUM 6.9 g/dL (6.4-8.2)
--- NOTE | 2016-04-05 07:00 | NUR ---
REPORT RECIEVED ASSUMED CARE. PATIENT IN BED WITH IV INTACT. NO COMPLAINTS AT THIS TIME. CALL LIGHT WITHIN REACH.
--- NOTE | 2016-04-05 08:30 | NUR ---
PATIENT SITTING UP IN BED WITH NO COMPLAINTS. IV INTACT. CALL LIGHT WITHIN REACH.
[2016-04-05 09:23] VITALS: BP 140/50
--- NOTE | 2016-04-05 11:30 | NUR ---
PATIENT UP TO BEDSIDE. NO COMPLAINTS OR SIGNS OF DISTRESS. CALL LIGHT WITHIN REACH.
[2016-04-05 11:47] VITALS: BP 151/63
--- NOTE | 2016-04-05 14:33 | NUR ---
PATIENT IN BED WITH EYES CLOSED RESTING QUIETLY. NO COMPLAINTS AT THIS TIME. CALL LIGHT WITHIN REACH.
[2016-04-05 16:05] VITALS: BP 142/64
--- NOTE | 2016-04-05 18:33 | NUR ---
PATIENT IN BED WITH IV INTACT. NO COMPLAINTS AT THIS TIME. SPOKE WITH DR. OCAMPO ABOUT PATIENT AT THIS TIME. NO NEW ORDERS. CALL LIGHT WITHIN REACH.
[2016-04-05 19:00] VITALS: BP 166/71
--- NOTE | 2016-04-05 21:08 | NUR ---
PATIENT RESTING IN BED WATCHING TV. NO SIGNS OF DISTRESS NOTED. SCHEDULED MEDICATIONS GIVEN ORDERED. DENIES ANY NEEDS AT THIS TIME. BED LOW. CALL LIGHT IN REACH
[2016-04-05 23:59] VITALS: BP 151/63
--- NOTE | 2016-04-06 04:43 | NUR ---
AWAKE SITTING ON SIDE OF BED. CALL LIGHT WITHIN REACH. DENIES NEEDS.
[2016-04-06 05:03] VITALS: BP 156/72
[2016-04-06 05:09] LABS: BASOPHILS 0.6 % (0.0-2.0); HEMATOCRIT 30.9 % (42.0-54.0); HEMOGLOBIN 9.5 g/dL (13.5-17.5); IMMATURE GRANULOCYTES 0.6 % (0-5); LYMPHOCYTES 27.5 % (15-50); MCH 30.5 pg (26.0-34.0); MCHC 30.7 g/dL (31.0-37.0); MCV 99.4 fL (80.0-100.0); MEAN PLATELET VOLUME 9.8 fL (7.4-10.4); NEUTROPHILS 53.3 % (40-80); PLATELET COUNT 180 10x3/uL (130-400); RBC 3.11 10x6/uL (4.20-6.10); RDW 14.7 % (11.5-14.5)
[2016-04-06 05:37] LABS: ANION GAP 16.7 mmol/L (8-16); BILIRUBIN - TOTAL 0.4 mg/dL (0.2-1.3); CALCIUM 8.4 mg/dL (8.5-10.1); CREATININE - SERUM 3.2 mg/dL (0.6-1.3); POTASSIUM - SERUM 4.7 mmol/L (3.5-5.1); PROTEIN - SERUM 7.9 g/dL (6.4-8.2)
[2016-04-06 05:50] LABS: WBC 7.8 10x3/uL (4.8-10.8)
--- NOTE | 2016-04-06 08:04 | NUR ---
AWAKE AND ALERT. ORIENTED X3. NO C/O AT THIS TIME. WANTS TO GO HOME REALLY BAD TODAY. LUNGS ARE CLEAR BILATERALLY, REPORTS OCCASSIONAL DRY COUGH. SKIN IS INTACT WITHOUT REDNESS EXCEPT WOUND TO RIGHT SECOND TOE WHICH SHOWS SIGNS OF HEALING. SL TO RIGHT FOREARM PATENT WITHOUT REDNESS AT INSERTION SITE. FISTUAL TO LEFT UPPER ARM WITH GOOD BRUIT AND THRILL. DENIES NEEDS. REPORTS NO STOOLS THIS AM.
[2016-04-06 08:32] VITALS: BP 158/69
--- NOTE | 2016-04-06 09:30 | NUR ---
UP TO BR WITH MIN ASSIST. HAD LARGE AMOUNT OF LOOSE WATERY STOOL. SKIN CARE PER SELF. DENIES NEEDS.
[2016-04-06] MEDS ORDERED: XIFAXAN200 MG PO (11:19)
[2016-04-06] MEDS ORDERED: FLORASTOR250 MG PO (11:20)
[2016-04-06] MEDS ORDERED: LOMOTIL TABLET1 TAB PO (11:21)
[2016-04-06 11:30] VITALS: BP 166/67
--- NOTE | 2016-04-06 11:32 | NUR ---
CM REASSESSMENT NOTE: PATIENT IS DISCHARGING HOME TODAY. THE D/C IMM NOTICE SIGNED. PATIENT STATED HIS SISTER IS DRIVING HIM HOME. PATIENT IS CURRENT WITH [facility] AND THEY HAVE BEEN NOTIFIED.
--- NOTE | 2016-04-06 13:50 | NUR ---
DISCHARGED TO HOME WITH FAMILY AMBULATORY. DISCHARGE INSTRUCTIONS GIVEN BOTH VERBALLY AND WRITTEN. ALL QUESTIONS ANSWERED. PATIENT AND FAMILY VERBALIZED UNDERSTANDING OF SAME. SOME PRESCRIPTIONS SENT TO PHARMACY OF CHOICE. LOMOTIL PRESCRIPTIONS GIVEN TO PATIENT. SL TO RIGHT FOREARM D/C WITH CATHERTER INTACT.
== END 2016-04-06 13:50 | disposition home or self-care (01) | DRG 372 ==
LOC: D.MS 13:46
PROVIDERS: Emergency Medicine; Family Medicine; Internal Medicine Gastroenterology; Internal Medicine Nephrology; ADMIT Family Medicine
PROC: 0DBN8ZX Excision of Sigmoid Colon, Via Natural or Artificial Opening Endoscopic, Diagnostic (ICD-10-PCS; principal; 2016-04-01 10:00)
DX: A04.7 Enterocolitis due to Clostridium difficile (principal); L02.611 Cutaneous abscess of right foot; N18.4 Chronic kidney disease, stage 4 (severe); N17.9 Acute kidney failure, unspecified; N25.81 Secondary hyperparathyroidism of renal origin; E87.2 Acidosis; L03.031 Cellulitis of right toe; E11.22 Type 2 diabetes mellitus with diabetic chronic kidney disease; I12.9 Hypertensive chronic kidney disease with stage 1 through stage 4 chronic kidney disease, or unspecified chronic kidney disease; N40.1 Benign prostatic hyperplasia with lower urinary tract symptoms; D63.1 Anemia in chronic kidney disease; E03.9 Hypothyroidism, unspecified

== ENCOUNTER 2017-03-04 17:04 | Inpatient (IN) | payer MEDICARE ==
[~2017-03-04] VITALS: Ht 180.3 cm; Wt 93.0 kg
--- NOTE | ~2017-03-04 | EC ---
PATIENT:REMIGIO SARAH DATE OF SERVICE: 03/04/17 SEX: M MEDICAL RECORD: [id number] DATE OF : [birth year] LOCATION:[facility] AGE OF PATIENT: 71 ADMISSION DATE: 03/04/17 REFERRING PHYSICIAN: INTERPRETING PHYSICIAN: NEW ROSS MD ECHOCARDIOGRAM REPORT ECHO CHARGES 4 ECHO COMPLETE CLINICAL DIAGNOSIS: CHF ECHOCARDIOGRAPHIC MEASUREMENTS (adult normal given) AC root (d.<3.7cm) 3.3 cm LV Septum d (<1.2 cm> 1.5 cm Valve Excursion 1.7 cm LV Septum (systole) 1.7 cm Left Atria (s.<4.0cm> 4.4 cm LVPW d(<1.2cm) 1.7 cm RV (d.<2.3cm) 4.4 cm LVPW (sytole) 1.8 cm LV diastole(<5.6CM) 4.8 cm MV E-F(>70mm/sec) cm LV systole 2.8 cm LVOT Diameter 1.8 cm MV exc.(>10mm) 1.5 cm Est.ejection fraction (50-75%) % Pericardial Effusion N DOPPLER: LVIT cm/sec A 70.0 cm/sec E 116 cm/sec LA cm/sec RVSP 36 mmHg LVOT 122 cm/sec AOP1/2T m/s Asc. Ao 162 cm/sec RVOT 86 cm/sec RA cm/sec PA 110 cm/sec AV Gradient Peak 10.50mmHg AV Mean 6.36 mmHg AV Area 2.0 cm MV Gradient Peak 7.83 mmHg MV Mean 1.97 mmHg MV Area cm COMMENTS: Electronic Systems Security Assessment: 2 SHERWIN MERRILL Security Flex Officer: 3 Dr. Sullivan TAPE# PACS DATE OF SERVICE: 03/05/2017 Adequate 2-D echo, color flow imaging, spectral Doppler, and M-mode. Mild LVH. LV internal dimensions are normal. Wall motion is normal. EF is greater than 55%. Aortic valve is tricuspid. There is no evidence of stenosis by Doppler interrogation. Left atrium is dilated at 4.4 cm. Mitral valve shows no prolapse. Trace MR. Right-sided chamber size is normal. Trace TR. TRANSINT:[id number] Voice Confirmation ID: [id number] DOCUMENT ID: [id number] ECHOCARDIOGRAM REPORT [id number] REMIGIO SARAH 03/08/2017 Edited to correct date of service, dmm. NEW ROSS MD at 1337 CC: [id number] DICTATION DATE: 03/06/17 0946 STEEL BUFFER: 03/06/17 1225 DIS IN 03/08/17 [facility] [address] [id number]
[~2017-03-04 17:04] MED LIST changes: +FLORASTOR250 MG PO; +LOMOTIL TABLET1 TAB PO; +XIFAXAN200 MG PO
[2017-03-04 17:42] LABS: BASOPHILS 0.2 % (0-2); EOSINOPHILS 1.8 % (0-7); HEMATOCRIT 32.6 % (42.0-54.0); HEMOGLOBIN 10.5 g/dL (13.5-17.5); IMMATURE GRANULOCYTES 0.1 % (0-5); LYMPHOCYTES 23.1 % (15-50); MCH 31.6 pg (26.0-34.0); MCHC 32.2 g/dL (31.0-37.0); MCV 98.2 fL (80.0-100.0); MEAN PLATELET VOLUME 10.6 fL (7.4-10.4); MONOCYTES 10.6 % (2-11); NEUTROPHILS 64.2 % (40-80); PLATELET COUNT 151 10x3/uL (130-400); RBC 3.32 10x6/uL (4.20-6.10); RDW 13.5 % (11.5-14.5); WBC 8.3 10x3/uL (4.8-10.8)
[2017-03-04 17:50] LABS: INR 1.19 (0.85-1.17); PROTIME 14.7 SECONDS (11.6-15.0)
[2017-03-04 17:59] VITALS: BP 173/60; BMI 28.6
[2017-03-04 18:02] LABS: ALBUMIN 3.6 g/dL (3.4-5.0); ANION GAP 17.1 mmol/L (8-16); BILIRUBIN - TOTAL 0.71 mg/dL (0.2-1.3); CALCIUM 8.5 mg/dL (8.5-10.1); CARBON DIOXIDE 23.7 mmol/L (21.0-32.0); CREATININE - SERUM 3.7 mg/dL (0.6-1.3); POTASSIUM - SERUM 3.8 mmol/L (3.5-5.1); PROTEIN - SERUM 7.3 g/dL (6.4-8.2)
[2017-03-04 20:00] VITALS: BP 153/57
[2017-03-05] VITALS: BP 175/56
[2017-03-05 04:00] VITALS: BP 162/60
[2017-03-05 08:15] VITALS: BP 124/48
[2017-03-05 12:43] VITALS: BP 144/58
[2017-03-05 17:08] LABS: APPEARANCE CLEAR (CLEAR); BILIRUBIN NEGATIVE (NEGATIVE); COLOR STRAW (YELLOW); GLUCOSE 100 mg/dL (NEGATIVE); KETONE NEGATIVE (NEGATIVE); NITRITE NEGATIVE (NEGATIVE); PROTEIN 1+ mg/dL (NEGATIVE); UROBILINOGEN NORMAL (NORMAL)
[2017-03-05 17:09] LABS: BACTERIA FEW /hpf (NONE SEEN); EPITHELIAL CELLS 0-5 /hpf (0-5); WHITE CELLS - URINE 0-5 /hpf (0-5)
[2017-03-05 20:00] VITALS: BP 135/60
[2017-03-06 04:00] VITALS: BP 145/63
[2017-03-06 05:29] LABS: BASOPHILS 0.1 % (0-2); EOSINOPHILS 2.7 % (0-7); HEMATOCRIT 28.8 % (42.0-54.0); HEMOGLOBIN 9.2 g/dL (13.5-17.5); IMMATURE GRANULOCYTES 0.7 % (0-5); MCHC 31.9 g/dL (31.0-37.0); MEAN PLATELET VOLUME 11.5 fL (7.4-10.4); MONOCYTES 12.3 % (2-11); NEUTROPHILS 65.2 % (40-80); PLATELET COUNT 137 10x3/uL (130-400); RBC 2.97 10x6/uL (4.20-6.10); RDW 13.4 % (11.5-14.5)
[2017-03-06 06:05] LABS: % SATURATION 6 % (15-55); IRON 13 ug/dl (35-150); TOTAL IRON BIND CAPACITY 194 ug/dl (260-445); UNSAT IRON BIND CAPACITY 181 ug/dl (150-375)
[2017-03-06 06:06] LABS: ALBUMIN 2.7 g/dL (3.4-5.0); ANION GAP 16.3 mmol/L (8-16); BILIRUBIN - TOTAL 0.43 mg/dL (0.2-1.3); CALCIUM 8.1 mg/dL (8.5-10.1); POTASSIUM - SERUM 3.3 mmol/L (3.5-5.1); PROTEIN - SERUM 6.1 g/dL (6.4-8.2)
[2017-03-06 08:14] VITALS: BP 131/51
[2017-03-06 12:21] VITALS: BMI 28.6
[2017-03-06 13:11] VITALS: BP 158/55
[2017-03-06 14:06] VITALS: Ht 180.3 cm; Wt 93.0 kg
[2017-03-06 17:27] VITALS: BP 147/54
[2017-03-06 20:00] VITALS: BP 144/51
[2017-03-07 04:00] VITALS: BP 136/48
[2017-03-07 04:35] LABS: BASOPHILS 0.3 % (0-2); EOSINOPHILS 4.7 % (0-7); HEMATOCRIT 28.1 % (42.0-54.0); HEMOGLOBIN 9.2 g/dL (13.5-17.5); IMMATURE GRANULOCYTES 0.3 % (0-5); LYMPHOCYTES 21.4 % (15-50); MCH 31.7 pg (26.0-34.0); MCHC 32.7 g/dL (31.0-37.0); MCV 96.9 fL (80.0-100.0); MEAN PLATELET VOLUME 10.4 fL (7.4-10.4); NEUTROPHILS 61.3 % (40-80); WBC 7.5 10x3/uL (4.8-10.8)
[2017-03-07 04:49] LABS: PLATELET COUNT 175 10x3/uL (130-400)
[2017-03-07 04:59] LABS: ALBUMIN 2.6 g/dL (3.4-5.0); ANION GAP 11.2 mmol/L (8-16); BILIRUBIN - TOTAL 0.4 mg/dL (0.2-1.3); CALCIUM 7.8 mg/dL (8.5-10.1); CARBON DIOXIDE 27.1 mmol/L (21.0-32.0); CREATININE - SERUM 4.4 mg/dL (0.6-1.3); POTASSIUM - SERUM 3.3 mmol/L (3.5-5.1); PROTEIN - SERUM 6.5 g/dL (6.4-8.2)
[2017-03-07 09:30] VITALS: BP 150/76
[2017-03-07 10:19] LABS: FOLATE (FOLIC ACID) - SERUM 10.8 ng/mL (>3.0)
[2017-03-07 12:01] VITALS: BP 146/49
[2017-03-07 16:31] VITALS: BP 151/54
[2017-03-07 20:00] VITALS: BP 140/48
[2017-03-08 04:00] VITALS: BP 136/55
[2017-03-08 05:24] LABS: BASOPHILS 0.3 % (0-2); EOSINOPHILS 4.2 % (0-7); HEMATOCRIT 30.2 % (42.0-54.0); HEMOGLOBIN 9.6 g/dL (13.5-17.5); IMMATURE GRANULOCYTES 0.1 % (0-5); LYMPHOCYTES 24.3 % (15-50); MCH 31.1 pg (26.0-34.0); MCHC 31.8 g/dL (31.0-37.0); MCV 97.7 fL (80.0-100.0); MEAN PLATELET VOLUME 10.3 fL (7.4-10.4); MONOCYTES 10.6 % (2-11); NEUTROPHILS 60.5 % (40-80); PLATELET COUNT 187 10x3/uL (130-400); RBC 3.09 10x6/uL (4.20-6.10); RDW 13.3 % (11.5-14.5); WBC 6.7 10x3/uL (4.8-10.8)
[2017-03-08 05:54] LABS: ALBUMIN 2.6 g/dL (3.4-5.0); BILIRUBIN - TOTAL 0.32 mg/dL (0.2-1.3); CALCIUM 8.3 mg/dL (8.5-10.1); CARBON DIOXIDE 25.6 mmol/L (21.0-32.0); CREATININE - SERUM 4.2 mg/dL (0.6-1.3); POTASSIUM - SERUM 3.6 mmol/L (3.5-5.1); PROTEIN - SERUM 6.8 g/dL (6.4-8.2)
[2017-03-08 08:16] VITALS: BP 155/55
[2017-03-08 12:25] VITALS: BP 171/66
[2017-03-08] MEDS ORDERED: FEXOFENADINE HC60 MG PO (13:55)
[2017-03-08] MEDS ORDERED: ARICEPT10 MG PO (13:55)
[2017-03-08] MEDS ORDERED: HUMALOG 30100 UNITS/ SC (13:56)
[2017-03-08] MEDS ORDERED: PROTONIX40 MG PO (13:56)
[2017-03-08] MEDS ORDERED: FLORAJEN3 CAPS460 MG PO (13:56)
[2017-03-08] MEDS ORDERED: TEFLARO IV (15:20)
[2017-03-08] MEDS ORDERED: FERRLECIT62.5 MG/2 IVPB (15:20)
== END 2017-03-08 19:46 | DRG 300 ==
LOC: D.MS 17:04
PROVIDERS: Emergency Medicine; Family Medicine; Internal Medicine Nephrology
DX: E11.52 Type 2 diabetes mellitus with diabetic peripheral angiopathy with gangrene (principal); L03.116 Cellulitis of left lower limb; I96 Gangrene, not elsewhere classified; N18.4 Chronic kidney disease, stage 4 (severe); N17.9 Acute kidney failure, unspecified; N40.1 Benign prostatic hyperplasia with lower urinary tract symptoms; R35.1 Nocturia; E87.6 Hypokalemia; E11.22 Type 2 diabetes mellitus with diabetic chronic kidney disease; I12.9 Hypertensive chronic kidney disease with stage 1 through stage 4 chronic kidney disease, or unspecified chronic kidney disease; E11.65 Type 2 diabetes mellitus with hyperglycemia

== ENCOUNTER 2017-03-08 17:59 | Inpatient (IN) | payer MEDICARE ==
[~2017-03-08] VITALS: Ht 180.3 cm; Wt 93.0 kg
--- NOTE | ~2017-03-08 | RHP ---
PATIENT: REMIGIO SARAH MEDICAL RECORD: [id number] ACCOUNT: [id number] LOCATION:[facility]1112 : 45 ADMISSION DATE: 03/08/17 REHABILITATION HISTORY AND PHYSICAL EXAMINATION POST ADMISSION PHYSICIAN EXAMINATION DATE OF ADMISSION: 03/08/2017 ADMITTING DIAGNOSIS: Debility secondary to peripheral vascular disease with cellulitis of the lower extremity. HISTORY OF PRESENT ILLNESS: The patient is admitted to inpatient rehab for debility secondary to cellulitis to his left lower extremity. He has severe peripheral vascular disease. He has history of hypertension; coronary artery disease, status post stent placement; diabetes; peripheral neuropathy; chronic kidney disease; and anemia. He presented with complaints of having infection in his left foot for approximately 3 days. The patient's left foot was noted to be erythematous, swollen with purulent drainage, and black eschar. He was admitted to the [facility] for further evaluation. He received IV antibiotics. He was evaluated by general surgery. No surgical intervention at that time was needed. Studies were completed and found to have ofixjdnj-uy-xzokca peripheral vascular disease to his left lower extremity and utmg-ez-rnffhtfy peripheral vascular disease to his right lower extremity. He lives at home alone, was moderately independent with a single-point cane and was independent with ADLs, cooking, and cleaning. His sister lives next door. She checks on him frequently. He is noted to have oxygen at 2 liters via nasal cannula. He did have some complaints of shortness of breath with exertion. He has no home O2 at this time. He is currently set up from moderate assist for ADLs and hhlbicku-ng-jypoq assist for mobility. He would like to return home to his prior level of functioning or better and his sister concurs with this. COMORBIDITIES: Include severe peripheral vascular disease, neuropathy, nephropathy, hypokalemia, chronic iron deficiency, chronic hypothyroidism, hypertension, cellulitis, end-stage renal disease, history of C. diffs. PAST MEDICAL HISTORY: Significant for diabetes, hypertension, thyroid problems. PAST SURGICAL HISTORY: Includes cataract surgery. He has had laser surgery in both his eyes. He has had an AV fistula, stents, and angioplasty. ALLERGIES: No known drug allergies. CURRENT MEDICATIONS: He is on iron replacement protocol at this time. He is on Teflaro daily. He is on Protonix 40 mg daily, Bystolic 5 mg daily, lisinopril 2.5 mg daily, Synthroid 75 mcg daily, Floranex 460 mg daily. He is on Lantus 20 units daily, Chantel 60 mg daily, aspirin chewable 81 mg daily. He is on Pravachol 20 mg at bedtime. He is on intermediate resistance sliding scale with Humalog. He is on Lantus 10 units at bedtime. He is on Aricept 10 mg daily and he is on polyethylene glycol 17 grams in 8 ounces of water daily. HABITS: No alcohol or tobacco use. FAMILY HISTORY: Noncontributory. SOCIAL HISTORY: The patient hopes to return back home. Sister says that she HISTORY AND PHYSICAL [id number] REMIGIO SARAH will be close by to take care of him. REVIEW OF SYSTEMS: GENERAL: He denies weakness. HEENT: He denies cold, cough, or congestion. CVS: Denies chest pain. PHYSICAL EXAMINATION: VITAL SIGNS: Stable. Afebrile. GENERAL: Elderly gentleman, in no acute distress, alert upon exam. HEENT: Normocephalic and atraumatic. Mucosa moist. NECK: Supple. No lymphadenopathy. LUNGS: Clear at this time. HEART: Regular rate and rhythm. ABDOMEN: Benign. EXTREMITIES: He does have dressings to his lower extremity. He does have changes consistent with peripheral vascular disease including hair loss and cool extremities. NEUROLOGIC: He does have decreased vibratory sensation and also coolness to his extremities. LABORATORY DATA: White count is 5.9, H&H of 8.7 and 26.8, and platelet count is noted to be 181. His sodium is 147, potassium 3.9, BUN and creatinine of 57 and 4.2, and blood sugar is noted to be 131. ASSESSMENT: This is a 71-year-old gentleman admitted to rehab with working diagnosis of debility secondary to severe peripheral vascular disease. The patient has potential to make improvement. We will institute the following multidisciplinary therapies including, but not limited to physical, occupational, respiratory, speech, nutritional services, prosthetics, and orthotics. Given his complex condition and risk for more complications, rehabilitation services cannot be provided at a low level of care such as a correction facility. PLAN: 1. Admit to [facility] rehab for intensive inpatient therapy to include the following disciplines: A. Physical therapy to improve gait, all transfer skills, and bed mobility to a modified independent level. B. Occupational therapy to improve activities of daily living to a modified independent level. C. Case management to assist with discharge planning and placement options. D. Nutrition to assist with nutritional needs. E. Rehabilitation nursing to assist in monitoring the patient's underlying medical conditions and to assist with any type of bowel or bladder management. 2. The patient's current medications and medical care will be continued. 3. The patient will be placed on standard fall precautions. 4. The patient's estimated length of stay is approximately 7-10 days. 5. Discuss this patient during care team staff meeting this week. TRANSINT:[id number] Voice Confirmation ID: [id number] DOCUMENT ID: [id number] MICHELLE notes whether there has been none or any medical/functional change since admission: HISTORY AND PHYSICAL [id number] REMIGIO SARAH - No change since pre-admission screen. MICHELLE attests patient continues to be appropriate for IRF: - Continues to be appropriate for IRF. JOVANI HUMMEL MD at 1317 CC: [id number] DICTATION DATE: 03/09/17 1014 J2EE DEVELOPER: 03/09/17 1052 ADM IN [facility] [address] [id number]
[~2017-03-08 17:59] MED LIST changes: +ARICEPT10 MG PO; +FERRLECIT62.5 MG/2 IVPB; +FEXOFENADINE HC60 MG PO; +HUMALOG 30100 UNITS/ SC; +PROTONIX40 MG PO; +TEFLARO IV
[2017-03-08 23:54] VITALS: BP 163/62; BMI 28.6
[2017-03-09 08:00] VITALS: BP 160/52
[2017-03-09 08:22] LABS: HEMATOCRIT 26.8 % (42.0-54.0); HEMOGLOBIN 8.7 g/dL (13.5-17.5); MCH 31.1 pg (26.0-34.0); MCHC 32.5 g/dL (31.0-37.0); MCV 95.7 fL (80.0-100.0); MEAN PLATELET VOLUME 9.9 fL (7.4-10.4); NEUTROPHILS 66.4 % (40-80); PLATELET COUNT 181 10x3/uL (130-400); RDW 12.7 % (11.5-14.5); WBC 5.9 10x3/uL (4.8-10.8)
[2017-03-09 08:24] LABS: CALCIUM 8.3 mg/dL (8.5-10.1); CARBON DIOXIDE 24.9 mmol/L (21.0-32.0); CREATININE - SERUM 4.2 mg/dL (0.6-1.3); POTASSIUM - SERUM 3.9 mmol/L (3.5-5.1)
[2017-03-09 12:45] VITALS: BMI 28.6
[2017-03-09 19:20] VITALS: BP 152/40
[2017-03-09 21:56] VITALS: BP 152/40
[2017-03-10 05:58] LABS: BASOPHILS 0.5 % (0-2); HEMOGLOBIN 9.1 g/dL (13.5-17.5); IMMATURE GRANULOCYTES 0.3 % (0-5); LYMPHOCYTES 24.5 % (15-50); MCH 30.7 pg (26.0-34.0); MCHC 31.4 g/dL (31.0-37.0); MEAN PLATELET VOLUME 9.9 fL (7.4-10.4); MONOCYTES 10.3 % (2-11); NEUTROPHILS 60.4 % (40-80); PLATELET COUNT 186 10x3/uL (130-400); RBC 2.96 10x6/uL (4.20-6.10); RDW 13.1 % (11.5-14.5); WBC 6.2 10x3/uL (4.8-10.8)
[2017-03-10 06:21] LABS: ANION GAP 15.9 mmol/L (8-16); CALCIUM 8.5 mg/dL (8.5-10.1); CREATININE - SERUM 4.2 mg/dL (0.6-1.3); POTASSIUM - SERUM 3.9 mmol/L (3.5-5.1)
[2017-03-10 08:00] VITALS: BP 156/48
[2017-03-10 22:00] VITALS: BP 138/46
[2017-03-11 19:45] VITALS: BP 153/54
[2017-03-12 07:30] VITALS: BP 136/52
[2017-03-12 22:59] VITALS: BP 133/56
[2017-03-13 06:40] LABS: BASOPHILS 0.3 % (0-2); HEMATOCRIT 27.2 % (42.0-54.0); HEMOGLOBIN 8.5 g/dL (13.5-17.5); IMMATURE GRANULOCYTES 0.5 % (0-5); LYMPHOCYTES 23.6 % (15-50); MCH 30.6 pg (26.0-34.0); MCHC 31.3 g/dL (31.0-37.0); MCV 97.8 fL (80.0-100.0); MEAN PLATELET VOLUME 9.9 fL (7.4-10.4); MONOCYTES 9.8 % (2-11); NEUTROPHILS 60.8 % (40-80); PLATELET COUNT 191 10x3/uL (130-400); RBC 2.78 10x6/uL (4.20-6.10); RDW 13.4 % (11.5-14.5); WBC 6.4 10x3/uL (4.8-10.8)
[2017-03-13 06:47] LABS: ANION GAP 14.9 mmol/L (8-16); CALCIUM 7.9 mg/dL (8.5-10.1); CARBON DIOXIDE 24.8 mmol/L (21.0-32.0); CREATININE - SERUM 3.9 mg/dL (0.6-1.3); POTASSIUM - SERUM 4.7 mmol/L (3.5-5.1)
[2017-03-13 07:39] VITALS: BP 156/54
[2017-03-13 20:48] VITALS: BP 147/49
[2017-03-14 07:50] VITALS: BP 160/55
[2017-03-14 20:50] VITALS: BP 157/57
[2017-03-15 06:37] LABS: BASOPHILS 0.3 % (0-2); EOSINOPHILS 4.3 % (0-7); HEMATOCRIT 28.7 % (42.0-54.0); HEMOGLOBIN 8.8 g/dL (13.5-17.5); IMMATURE GRANULOCYTES 0.7 % (0-5); LYMPHOCYTES 20.4 % (15-50); MCH 30.6 pg (26.0-34.0); MCHC 30.7 g/dL (31.0-37.0); MCV 99.7 fL (80.0-100.0); MONOCYTES 9.7 % (2-11); NEUTROPHILS 64.6 % (40-80); PLATELET COUNT 193 10x3/uL (130-400); RBC 2.88 10x6/uL (4.20-6.10); RDW 13.9 % (11.5-14.5); WBC 6.7 10x3/uL (4.8-10.8)
[2017-03-15 07:08] LABS: ANION GAP 16.7 mmol/L (8-16); CALCIUM 8.7 mg/dL (8.5-10.1); CARBON DIOXIDE 23.6 mmol/L (21.0-32.0); CREATININE - SERUM 4.1 mg/dL (0.6-1.3); POTASSIUM - SERUM 4.3 mmol/L (3.5-5.1)
[2017-03-15 07:41] VITALS: BP 165/59
[2017-03-15 11:31] VITALS: Ht 180.3 cm; Wt 93.0 kg
[2017-03-15 20:00] VITALS: BP 155/53
[2017-03-16 08:18] VITALS: BP 183/71
[2017-03-16 20:00] VITALS: BP 146/58
[2017-03-17 05:59] LABS: BASOPHILS 0.3 % (0-2); EOSINOPHILS 4.3 % (0-7); HEMATOCRIT 27.8 % (42.0-54.0); HEMOGLOBIN 8.8 g/dL (13.5-17.5); IMMATURE GRANULOCYTES 0.5 % (0-5); LYMPHOCYTES 24.8 % (15-50); MCH 31.1 pg (26.0-34.0); MCHC 31.7 g/dL (31.0-37.0); MCV 98.2 fL (80.0-100.0); MEAN PLATELET VOLUME 10.3 fL (7.4-10.4); NEUTROPHILS 60.1 % (40-80); PLATELET COUNT 178 10x3/uL (130-400); RBC 2.83 10x6/uL (4.20-6.10)
[2017-03-17 06:35] LABS: ANION GAP 13.8 mmol/L (8-16); CALCIUM 8.4 mg/dL (8.5-10.1); CARBON DIOXIDE 25.7 mmol/L (21.0-32.0); CREATININE - SERUM 4.2 mg/dL (0.6-1.3); POTASSIUM - SERUM 4.5 mmol/L (3.5-5.1)
[2017-03-17 07:57] VITALS: BP 151/49
[2017-03-17 19:00] VITALS: BP 146/59
[2017-03-18 08:51] VITALS: BP 148/64
[2017-03-18 20:00] VITALS: BP 161/50
[2017-03-19 08:07] VITALS: BP 186/73
[2017-03-19 20:00] VITALS: BP 119/33
[2017-03-20 06:53] LABS: BASOPHILS 0.3 % (0-2); EOSINOPHILS 4.4 % (0-7); HEMATOCRIT 28.2 % (42.0-54.0); HEMOGLOBIN 8.7 g/dL (13.5-17.5); IMMATURE GRANULOCYTES 0.2 % (0-5); LYMPHOCYTES 26.7 % (15-50); MCH 30.6 pg (26.0-34.0); MCHC 30.9 g/dL (31.0-37.0); MCV 99.3 fL (80.0-100.0); MEAN PLATELET VOLUME 10.2 fL (7.4-10.4); NEUTROPHILS 58.4 % (40-80); PLATELET COUNT 183 10x3/uL (130-400); RBC 2.84 10x6/uL (4.20-6.10); RDW 14.6 % (11.5-14.5); WBC 6.2 10x3/uL (4.8-10.8)
[2017-03-20 06:57] LABS: ANION GAP 16.1 mmol/L (8-16); CALCIUM 8.4 mg/dL (8.5-10.1); CARBON DIOXIDE 23.6 mmol/L (21.0-32.0); CREATININE - SERUM 4.3 mg/dL (0.6-1.3); POTASSIUM - SERUM 4.7 mmol/L (3.5-5.1)
[2017-03-20 07:45] VITALS: BP 165/60
[2017-03-20] MEDS ORDERED: FUROSEMIDE20 MG PO (16:41)
[2017-03-20] MEDS ORDERED: POTASSIUM CHLO10 ME1 PO (16:42)
[2017-03-20 22:05] VITALS: BP 121/61
[2017-03-21 08:12] VITALS: BP 137/57
== END 2017-03-21 10:00 | DRG 948 ==
LOC: D.REHAB 17:59
PROVIDERS: Emergency Medicine
DX: R53.81 Other malaise (principal); L03.116 Cellulitis of left lower limb; I12.0 Hypertensive chronic kidney disease with stage 5 chronic kidney disease or end stage renal disease; N18.4 Chronic kidney disease, stage 4 (severe); I70.203 Unspecified atherosclerosis of native arteries of extremities, bilateral legs; E11.22 Type 2 diabetes mellitus with diabetic chronic kidney disease; G62.9 Polyneuropathy, unspecified; E87.6 Hypokalemia; E03.9 Hypothyroidism, unspecified; D50.9 Iron deficiency anemia, unspecified; I25.10 Atherosclerotic heart disease of native coronary artery without angina pectoris; D63.1 Anemia in chronic kidney disease; E83.39 Other disorders of phosphorus metabolism

== ENCOUNTER → 2017-07-10 14:49 | Outpatient (CLI) | payer MEDICARE ==
[2017-03-15 11:31] VITALS: BMI 28.6
[~2017-07-10 14:49] MED LIST changes: +FUROSEMIDE20 MG PO; +POTASSIUM CHLO10 ME1 PO
[2017-07-10 15:29] LABS: BASOPHILS 0.5 % (0-2); HEMATOCRIT 36.7 % (42.0-54.0); IMMATURE GRANULOCYTES 0.5 % (0-5); LYMPHOCYTES 34.6 % (15-50); MCH 30.7 pg (26.0-34.0); MCHC 32.7 g/dL (31.0-37.0); MCV 93.9 fL (80.0-100.0); MEAN PLATELET VOLUME 10.6 fL (7.4-10.4); MONOCYTES 10.6 % (2-11); NEUTROPHILS 48.8 % (40-80); PLATELET COUNT 161 10x3/uL (130-400); RBC 3.91 10x6/uL (4.20-6.10); RDW 13.7 % (11.5-14.5); WBC 6.6 10x3/uL (4.8-10.8)
[2017-07-10 16:04] LABS: % SATURATION 27 % (15-55); IRON 58 ug/dl (35-150); TOTAL IRON BIND CAPACITY 212 ug/dl (260-445); UNSAT IRON BIND CAPACITY 154 ug/dl (150-375)
[2017-07-10 16:23] LABS: ALBUMIN 3.3 g/dL (3.4-5.0); ANION GAP 15.6 mmol/L (8-16); BILIRUBIN - TOTAL 0.35 mg/dL (0.2-1.3); CALCIUM 9.6 mg/dL (8.5-10.1); CARBON DIOXIDE 23.4 mmol/L (21.0-32.0); CREATININE - SERUM 3.6 mg/dL (0.6-1.3); PHOSPHOROUS 3.2 mg/dL (2.5-4.9); PROTEIN - SERUM 8.6 g/dL (6.4-8.2)
== END | disposition home or self-care (01) ==
LOC: D.LAB 14:49
PROVIDERS: Internal Medicine Nephrology
DX: N18.4 Chronic kidney disease, stage 4 (severe) (principal); R60.9 Edema, unspecified; T82.898D Other specified complication of vascular prosthetic devices, implants and grafts, subsequent encounter; E11.9 Type 2 diabetes mellitus without complications; D63.1 Anemia in chronic kidney disease

== ENCOUNTER 2020-08-07 14:07 | Emergency (ER) | payer MEDICARE ==
[~2020-08-07 14:07] MED LIST changes: +ACETAMINOPHEN325 MG PO; +ASCORBIC ACID500 MG PO; +CARBIDOPA-LEVO1 EAC2 PO; +DONEPEZIL HCL10 MG PO; +MULTI-DAY VITAM1 TAB PO; +NITRO-BID OINT30 G1 TOPICAL; +PLAVIX75 MG PO; +RENVELA800 MG PO; +VITAMIN D325 MC1 PO; +ZINC SULFATE220 MG PO
[2020-08-07 14:15] VITALS: BP 182/75; Ht 180.3 cm
[2020-08-07 15:03] LABS: BASOPHILS 1.1 % (0-2); HEMATOCRIT 26.6 % (42.0-54.0); HEMOGLOBIN 8.6 g/dL (13.5-17.5); LYMPHOCYTES 33.6 % (15-50); MCH 30.8 pg (26.0-34.0); MCHC 32.3 g/dL (31.0-37.0); MCV 95.1 fL (80.0-100.0); MEAN PLATELET VOLUME 7.6 fL (7.4-10.4); MONOCYTES 13.1 % (2-11); NEUTROPHILS 47.2 % (40-80); PLATELET COUNT 306 10x3/uL (130-400); RBC 2.79 10x6/uL (4.20-6.10); RDW 14.5 % (11.5-14.5); WBC 7.9 10x3/uL (4.8-10.8)
[2020-08-07 15:11] LABS: ANION GAP 14.8 mmol/L (8-16); CALCIUM 7.8 mg/dL (8.5-10.1); CARBON DIOXIDE 30.3 mmol/L (21.0-32.0); CREATININE - SERUM 5.6 mg/dL (0.6-1.3); POTASSIUM - SERUM 4.1 mmol/L (3.5-5.1)
[2020-08-07 15:17] LABS: BILIRUBIN - TOTAL 0.3 mg/dL (0.2-1.3); PROTEIN - SERUM 7.9 g/dL (6.4-8.2)
[2020-08-07 17:11] LABS: BILIRUBIN NEGATIVE (NEGATIVE); KETONE NEGATIVE mg/dL (< 1+); NITRITE NEGATIVE (NEGATIVE); SQUAMOUS EPITHELIAL 4 HPF (0-4); UROBILINOGEN NORMAL mg/dL (< 2); WHITE CELLS - URINE 38 HPF (0-1)
[2020-08-07 17:26] LABS: BACTERIA MODERATE HPF (<MOD)
[2020-08-07] MEDS ORDERED: LEVOFLOXACIN500 MG PO (17:52)
== END 2020-08-07 19:24 ==
LOC: D.ER 14:07
PROVIDERS: Emergency Medicine
DX: R41.82 Altered mental status, unspecified (principal); E11.9 Type 2 diabetes mellitus without complications; Z79.4 Long term (current) use of insulin; R53.83 Other fatigue